=== PATIENT | female | born 1955 | race Caucasian/White ===

== ENCOUNTER 2023-09-16 08:25 | Outpatient (OUT) | payer MEDICARE, BC, SELFPAY ==
--- NOTE | 2023-09-16 | MM_ITS ---
Patient Name: JOHNNA LUCAS MR#: [id number] : 1955 Exam Date: 09/16/2023 Ordering Doctor: DR Blaise Porter . RADIOLOGY REPORT PROCEDURE: MM TOMOSYNTHESIS SCREENING BI COMPARISON: [facility] MAMM SCREEN 3D PABLITO CAD, 09/13/2022. MG MAMM SCREEN PABLITO W CAD, 09/07/2021. MG MAMM SCREEN 3D PABLITO CAD, 09/04/2020. MG MAMM PABLITO SCRN W CAD DIG, 07/03/2013. INDICATIONS: Screening Calculator Name NCI Breast Cancer Risk Assessment Tool 5 Year Breast Cancer Risk 3.10% Lifetime Breast Cancer Risk 10.50% Personal Breast Cancer No Personal Ovarian Cancer No Treatments None Family Cancers Mother with breast cancer at age 72. LOCATION: [facility] BREAST COMPOSITION: The breasts are heterogeneously dense,which may obscure small masses. FINDINGS: DIAGNOSTIC CATEGORY 2--BENIGN FINDING: RIGHT BREAST: No significant suspicious finding. Scattered benign-appearing calcifications are present. No significant change has occurred. LEFT BREAST: No significant suspicious finding. Scattered benign-appearing lymph nodes are present. No significant change has occurred. RECOMMENDATIONS: ROUTINE MAMMOGRAM AND CLINICAL EVALUATION IN 12 MONTHS. PLEASE NOTE: A NORMAL MAMMOGRAM DOES NOT EXCLUDE THE POSSIBILITY OF BREAST CANCER. A CLINICALLY SUSPICIOUS PALPABLE LUMP SHOULD BE BIOPSIED. Dictated by: Lv David M.D. on 09/20/2023 at 11:28 Approved by: vL David M.D. on 09/20/2023 at 11:30
== END 2023-09-16 08:26 | disposition home or self-care (01) ==
LOC: MAMMO 08:25
PROVIDERS: PCP Family Medicine; Visit Provider Family Medicine
DX: Z12.31 Encounter for screening mammogram for malignant neoplasm of breast (principal); Z80.3 Family history of malignant neoplasm of breast
CPT/HCPCS: 77063; 77067

== ENCOUNTER 2023-09-22 10:08 | Outpatient (OUT) | payer MEDICARE, BC, SELFPAY ==
--- OUTSIDE RECORDS SUMMARY | 2023-09-22 10:16 | XMS_ITS | CCD ---
Author Organization [facility] Care Team Providers Care Stage Setting Painter Apprentice Name Role Phone FRANCIS CALVILLO Admitting Unavailable KARI, DR LOCKWOOD Primary Care Unavailable FRANCIS CALVILLO Attending Unavailable FRANCIS CALVILLO Consulting Unavailable DR MANDIE PIERCE Primary Care Unavailable KARI, DR LOCKWOOD Admitting Unavailable KARI, DR LOCKWOOD Attending Unavailable KARI, DR LOCKWOOD Consulting Unavailable KARI, DR LOCKWOOD Admitting Unavailable KARI, DR LOCKWOOD Attending Unavailable NEY, DR LUTHER Soares Consulting Unavailable KARI, DR LOCKWOOD Primary Care Unavailable Allergies Allergy Classification Reported Allergen(s) Allergy Type Date of Onset Reaction(s) Facility (1 source) Codeine Drug Allergy 01-27-2015 [facility] Repository (1 source) Sulfonamides (Antibiotic) Drug allergy (disorder) 01-27-2015 [facility] Rep[facility] Problems Problem Classification Problem Date Documented Da te Episodic/Chronic Deficiency and other anemia (1 source) Anemia, unspecified; Translations: [ANEMIA UNSPECIFIED] Onset: 09-16-2021 Episodic Diabetes mellitus without complication (1 source) Other abnormal glucose; Translations: [OTHER ABNORMAL GLUCOSE] Onset: 09-16-2021 Episodic Disorders of lipid metabolism (4 sources) Hyperlipidemia, unspecified; Translations: [HYPERLIPIDEMIA UNSPECIFIED] Onset: 09-10-2021 Chronic Esophageal disorders (1 source) Gastro-esophageal reflux disease without esophagitis; Translations: [GERD WITHOUT ESOPHAGITIS] Onset: 09-16-2021 Chronic Malaise and fatigue (1 source) Other fatigue; Translations: [OTHER FATIGUE] Onset: 09-16-2021 Episodic Other screening for suspected conditions (not mental disorders or infectious disease) (4 sources) Encounter for screening mammogram for malignant neoplasm of breast; Translations: [ENC SCR MAMMO MALIG NEOPLASM BREAST] Onset: 09-07-2021 Episodic Residual codes; unclassified (1 source) Family history of malignant neoplasm of breast; Translations: [FAMILY HX MALIG NEOPLASM OF BREAST] Onset: 09-11-2021 Episodic Results Test Name Value Interpretation Reference Range Facility CBC AUTO DIFFon 09-10-2021 BASO # 0.0 103/ul Normal 0.0-0.1 [facility] Comment on above: Performed By: #### C BC #### [facility] [address] [address] [address] Scott Mukherjee Basophils/100 WBC (Bld) 0.7 % Normal 0.2-2.0 [facility] Comment on above: Performed By: #### C BC #### [facility] [address] [address] [address] Scott Mukherjee EO # 0.0 103/ul Normal 0.0-0.7 [facility] Comment on above: Performed By: #### C BC #### [facility] [address] [place] [address] Dr. Scott Mukherjee Eosinophils/100 WBC (Bld) 0.7 % Critically low 0.9-7.0 [facility] Comment on above: Performed By: #### C BC #### [facility] [address] [place] [address] Dr. Scott Mukherjee Erythrocyte distribution width (RBC) [Ratio] 14.5 % Normal 11.0-15.0 [facility] Comment on above: Performed By: #### C BC #### [facility] [address] [place] [address] Dr. Scott Mukherjee Hematocrit (Bld) [Volume fraction] 40.9 % Normal 36.0-48.0 [facility] Comment on above: Performed By: #### C BC #### [facility] [address] [place] [address] Dr. Scott Mukherjee Hemoglobin (Bld) [Mass/Vol] 12.4 g/dL Normal 12.0-16.0 [facility] Comment on above: Performed By: #### C BC #### [facility] [address] [place] [address] Dr. Scott Mukherjee IG # 0.03 10e3/ul Normal 0.00-0.03 [facility] Comment on above: Performed By: #### C BC #### [facility] [address] [place] [address] Dr. Scott Mukherjee IG % 0.5 % Normal 0.0-0.5 [facility] Comment on above: Performed By: #### C BC #### [facility] [address] [place] [address] Dr. Scott Mukherjee LYMPH # 1.3 103/ul Normal 1.2-3.8 [facility] Comment on above: Performed By: #### C BC #### [facility] [address] [place] [address] Dr. Scott Mukherjee Lymphocytes/100 WBC (Bld) 21.0 % Normal 20.5-60.0 [facility] Comment on above: Performed By: #### C BC #### [facility] [address] [place] [address] Dr. Scott Mukherjee MANUAL DIFF REQ NO Normal [facility] Comment on above: Performed By: #### C BC #### [facility] [address] [place] [address] Dr. Scott Mukherjee MCH (RBC) [Entitic mass] 26.7 pg Normal 26.7-34.0 [facility] Comment on above: Performed By: #### C BC #### [facility] [address] [place] [address] Dr. Scott Mukherjee MCHC (RBC) [Mass/Vol] 30.3 g/dL Normal 29.9-35.2 [facility] Comment on above: Performed By: #### C BC #### [facility] [address] [place] [address] Dr. Scott Mukherjee MCV (RBC) [Entitic vol] 88.1 fL Normal 81.0-99.0 [facility] Comment on above: Performed By: #### C BC #### [facility] [address] [place] [address] Dr. Scott Mukherjee MONO # 0.4 103/ul Normal 0.3-0.8 [facility] Comment on above: Performed By: #### C BC #### [facility] [address] [place] [address] Dr. Scott Mukherjee Monocytes/100 WBC (Bld) 6.4 % Normal 1.7-12.0 [facility] Comment on above: Performed By: #### C BC #### [facility] [address] [place] [address] Dr. Scott Mukherjee NEUT # 4.3 103/ul Normal 1.4-6.5 [facility] Comment on above: Performed By: #### C BC #### [facility] [address] [place] [address] Dr. Scott Mukherjee Neutrophils/100 WBC (Bld) 70.7 % Normal 43.0-75.0 [facility] Comment on above: Performed By: #### C BC #### [facility] [address] [place] [address] Dr. Scott Mukherjee Platelet mean volume (Bld) [Entitic vol] 9.7 fL Normal 9.5-13.5 [facility] Comment on above: Performed By: #### C BC #### [facility] [address] [place] [address] Dr. Scott Mukherjee PLT 387 103/ul Normal 150-450 [facility] Comment on above: Performed By: #### C BC #### [facility] [address] [place] [address] Dr. Scott Mukherjee RBC 4.64 106/ul Normal 4.20-5.40 [facility] Comment on above: Performed By: #### C BC #### [facility] [address] [place] [address] Dr. Scott Mukherjee WBC 6.1 103/ul Normal 4.0-11.0 [facility] Comment on above: Performed By: #### C BC #### [facility] [address] [place] [address] Dr. Scott Mukherjee FREE THYROXINE INDEX T7on FTI 3.49 Normal 1.30-4.50 [facility] Comment on above: Performed By: #### T 7, LIPID, TSH, CMP #### [facility] [address] [place] [address] Dr. Scott Mukherjee T3U 32.0 % Normal 30.0-39.0 [facility] Comment on above: Performed By: #### T 7, LIPID, TSH, CMP #### [facility] [address] [address] [address] Scott Mukherjee T4 [Mass/Vol] 10.90 ug/dL Normal 4.80-13.90 [facility] Comment on above: Performed By: #### T 7, LIPID, TSH, CMP #### [facility] [address] [address] [address] Scott Mukherjee GLYCOHEMOGLOBIN A1Con 2021 ADA RECOMMENDATION SEE BELOW Normal [facility] Comment on above: Result Comment: ADA RECOMMENDED LIMIT 4.0 - 6.0 ADA THERAPEUTIC TARGET < 7.0 ACTION SUGGESTED > 7.0 Performed By: #### A 1C #### [facility] [address] [place] [address] Dr. Scott Mukherjee Glucose [Mass/Vol] 91 mg/dL Normal [facility] Comment on above: Performed By: #### A 1C #### [facility] [address] [address] [address] Scott Mukherjee HbA1c (Bld) [Mass fraction] 4.8 % Normal 4.5-6.2 [facility] Comment on above: Performed By: #### A 1C #### [facility] [address] [place] [address] Dr. Scott Mukherjee IRONon 09-10-2021 Iron [Mass/Vol] 52.0 ug/dL Normal 50.0-170.0 [facility] Comment on above: Performed By: #### I CLAYTON #### [facility] [address] [address] [address] Scott Mukherjee LIPID PROFILEon 09-10-2021 CHOL-HDL RATIO NORM SEE BELOW Normal [facility] Comment on above: Result Comment: 3.3 - 4.4 LOW RISK 4.4 - 7.1 AVERAGE RISK 7.1 - 11.0 MODERATE RISK >11.0 HIGH RISK Performed By: #### T 7, LIPID, TSH, CMP #### [facility] [address] [address] [address] Scott Mukherjee Cholesterol [Mass/Vol] 220 mg/dL Critically high <=200 [facility] Comment on above: Performed By: #### T 7, LIPID, TSH, CMP #### [facility] [address] [address] [address] Scott Mukherjee Cholesterol in HDL [Mass/Vol] 61 mg/dL Critically high 40-60 [facility] Comment on above: Performed By: #### T 7, LIPID, TSH, CMP #### [facility] [address] [address] [address] Scott Mukherjee Cholesterol in LDL [Mass/Vol] 137.2 mg/dL Normal [facility] Comment on above: Performed By: #### T 7, LIPID, TSH, CMP #### [facility] [address] [address] [address] Scott Mukherjee Cholesterol.total/Cho lesterol in HDL [Mass ratio] 3.6 {ratio} Normal [facility] Comment on above: Performed By: #### T 7, LIPID, TSH, CMP #### [facility] [address] [address] [address] Scott Mukherjee HDL NORMAL > or = 60 mg/dl - LO W CARDIOVASCULAR RISK <40 mg/dl - HIGH CARDIOVASCULAR RISK Normal [facility] Comment on above: Performed By: #### T 7, LIPID, TSH, CMP #### [facility] [address] [address] [address] Scott Mukherjee LDL CALC NORMAL SEE BELOW Normal [facility] Comment on above: Result Comment: <100 mg/dl OPTIMAL 100 - 129 mg/dl NEAR OR ABOVE OPTIMAL 130 - 159 mg/dl BORDERLINE HIGH 160 - 189 mg/dl HIGH >190 mg/dl VERY HIGH Performed By: #### T 7, LIPID, TSH, CMP #### [facility] [address] [address] [address] Scott Mukherjee Triglyceride [Mass/Vol] 109 mg/dL Normal <=150 [facility] Comment on above: Performed By: #### T 7, LIPID, TSH, CMP #### [facility] [address] [address] [address] Scott Mukherjee VLDL CALC 21.8 mg/dL Normal [facility] Comment on above: Performed By: #### T 7, LIPID, TSH, CMP #### [facility] [address] [address] [address] Scott Mukherjee PROF 14(COMP METB)on 022 Albumin [Mass/Vol] 2.6 g/dL Critically low 3.4-5.0 [facility] Comment on above: Performed By: #### T 7, LIPID, TSH, CMP #### [facility] [address] [address] [address] Scott Mukherjee Albumin/Globulin [Mass ratio] 0.7 {ratio} Normal [facility] Comment on above: Performed By: #### T 7, LIPID, TSH, CMP #### [facility] [address] [place] [address] Dr. Scott Mukherjee ALP [Catalytic activity/Vol] 109 U/L Normal 46-116 [facility] Comment on above: Performed By: #### T 7, LIPID, TSH, CMP #### [facility] [address] [address] [address] Scott Mukherjee ALT [Catalytic activity/Vol] 25 U/L Normal 14-59 [facility] Comment on above: Performed By: #### T 7, LIPID, TSH, CMP #### [facility] [address] [address] [address] Scott Mukherjee Anion gap [Moles/Vol] 11.7 mmol/L Normal [facility] Comment on above: Performed By: #### T 7, LIPID, TSH, CMP #### [facility] [address] [address] [address] Scott Mukherjee AST [Catalytic activity/Vol] 18 U/L Normal 15-37 [facility] Comment on above: Performed By: #### T 7, LIPID, TSH, CMP #### [facility] [address] [place] [address] Dr. Scott Mukherjee Bilirubin [Mass/Vol] 0.2 mg/dL Normal 0.2-1.0 [facility] Comment on above: Performed By: #### T 7, LIPID, TSH, CMP #### [facility] [address] [address] [address] Scott Mukherjee Calcium [Mass/Vol] 9.0 mg/dL Normal 8.5-10.1 [facility] Comment on above: Performed By: #### T 7, LIPID, TSH, CMP #### [facility] [address] [place] [address] Dr. Scott Mukherjee Chloride [Moles/Vol] 103 mmol/L Normal 98-107 [facility] Comment on above: Performed By: #### T 7, LIPID, TSH, CMP #### [facility] [address] [place] [address] Dr. Scott Mukherjee CO2 [Moles/Vol] 27.8 mmol/L Normal 21.0-32.0 [facility] Comment on above: Performed By: #### T 7, LIPID, TSH, CMP #### [facility] [address] [place] [address] Dr. Scott Mukherjee Creatinine [Mass/Vol] 0.68 mg/dL Normal 0.55-1.02 [facility] Comment on above: Performed By: #### T 7, LIPID, TSH, CMP #### [facility] [address] [place] [address] Dr. Scott Mukherjee EGFR-AF CYMRAES >60 Normal >=60 [facility] Comment on above: Performed By: #### T 7, LIPID, TSH, CMP #### [facility] [address] [place] [address] Dr. Scott Mukherjee EGFR-NON AF CYMRAES >60 Normal >=60 [facility] Comment on above: Performed By: #### T 7, LIPID, TSH, CMP #### [facility] [address] [place] [address] Dr. Scott Mukherjee Globulin (S) [Mass/Vol] 3.9 g/dL Normal [facility] Comment on above: Performed By: #### T 7, LIPID, TSH, CMP #### [facility] [address] [place] [address] Dr. Scott Mukherjee Glucose [Mass/Vol] 98 mg/dL Normal 74-106 [facility] Comment on above: Performed By: #### T 7, LIPID, TSH, CMP #### [facility] [address] [address] [address] Scott Mukherjee Potassium [Moles/Vol] 4.5 mmol/L Normal 3.5-5.1 [facility] Comment on above: Performed By: #### T 7, LIPID, TSH, CMP #### [facility] [address] [place] [address] Dr. Scott Mukherjee Protein [Mass/Vol] 6.5 g/dL Normal 6.4-8.2 [facility] Comment on above: Performed By: #### T 7, LIPID, TSH, CMP #### [facility] [address] [place] [address] Dr. Scott Mukherjee Sodium [Moles/Vol] 138 mmol/L Normal 136-145 [facility] Comment on above: Performed By: #### T 7, LIPID, TSH, CMP #### [facility] [address] [place] [address] Dr. Scott Mukherjee Urea nitrogen [Mass/Vol] 11.0 mg/dL Normal 7.0-18.0 [facility] Comment on above: Performed By: #### T 7, LIPID, TSH, CMP #### [facility] [address] [place] [address] Dr. Scott Mukherjee Urea nitrogen/Creatinine [Mass ratio] 16.2 mg/mg Normal [facility] Comment on above: Performed By: #### T 7, LIPID, TSH, CMP #### [facility] [address] [place] [address] Dr. Scott Mukherjee TSHon 09-10-2021 TSH 1.858 uIU/mL Normal 0.358-3.740 [facility] Comment on above: Performed By: #### T 7, LIPID, TSH, CMP #### [facility] [address] [place] [address] Dr. Scott Mukherjee TSH RANGE SEE BELOW Normal [facility] Comment on above: Result Comment: <0.3 4 UIU/ml HYPERTHYROID 0.34-5.60 UIU/ml EUTHYROID >5.60 UIU/ml HYPOTHYROID Performed By: #### T 7, LIPID, TSH, CMP #### [facility] [address] [address] [address] Scott Mukherjee MG MAMM SCREEN PABLITO W CADon 0 09-07-2021 MG MAMM SCREEN PABLITO W CAD Patient: JOHNNA LUCAS Exam Date: 09/07/2021 : 1955 Gender:F Ordering : DR MANDIE PIERCE . Admission #: [id number] Family : Order #: [id number] CLICK HERE TO VIEW EXAM RADIOLOGY REPORT PROCEDURE: MAMMOGRAM BILATERAL SCREENING DIGITAL WITH COMPUTER AIDED DETECTION COMPARISON: MG MAMM SCREEN 3D PABLITO CAD, 09/04/2020. MG MAMM SCREEN PABLITO W CAD, 09/04/2019. INDICATIONS: Screening mammography Calculator Name NCI Breast Cancer Risk Assessment Tool 5 Year Breast Cancer Risk 3.10% Lifetime Breast Cancer Risk 11.40% Personal Breast Cancer No Personal Ovarian Cancer No Treatments None Family Cancers Mother with breast cancer at age 72. LOCATION: [facility] BREAST COMPOSITION: Heterogeneously dense,which may obscure small masses. FINDINGS: DIAGNOSTIC CATEGORY 2--BENIGN FINDING. NO CHANGE FROM COMPARISON. The patient has a fused cervical spine, tomographic images could not be performed. Scattered benign-appearing nodules are present. Scattered benign-appearing calcifications are present. Scattered benign-appearing lymph nodes are present. RIGHT BREAST: No significant suspicious finding. LEFT BREAST: No significant suspicious finding. RECOMMENDATIONS: ROUTINE MAMMOGRAM AND CLINICAL EVALUATION IN 12 MONTHS. PLEASE NOTE: A NORMAL MAMMOGRAM DOES NOT EXCLUDE THE POSSIBILITY OF BREAST CANCER. A CLINICALLY SUSPICIOUS PALPABLE LUMP SHOULD BE BIOPSIED. Dictated by: Luther Ge MD on 09/07/2021 at 10:55 Approved by: Luther Ge MD on 09/07/2021 at 10:56 Normal [facility] Pap IG, rfx Aptima HPV, rfx /18,45on 01-22-2021 . . Normal [facility] Comment on above: Result Comment: Perf ormed at: WB Performed By: #### P APHR2A #### [facility] [address] [address] [address] Scott Mukherjee DIAGNOSIS: Comment Normal [facility] Comment on above: Result Comment: NEGA TIVE FOR INTRAEPITHELIAL LESION OR MALIGNANCY. CELLULAR CHANGES ASSOCIATED WITH ATROPHY ARE PRESENT. Performed at: WB Performed By: #### P APHR2A #### [facility] [address] [place] [address] Dr. Scott Mukherjee HPV Aptima Negative Normal Negative [facility] Comment on above: Result Comment: This nucleic acid amplification test detects fourteen high-risk HPV types (16,18,31,33,35,39,45,51,52,56,58,59,66,68) without differentiation. Performed at: =G Performed By: #### P APHR2A #### [facility] [address] [place] [address] Dr. Scott Mukherjee Methodology: Comment Normal [facility] Comment on above: Result Comment: This liquid based ThinPrep(R) pap test was screened with the use of an image guided system. Performed at: WB Performed By: #### P APHR2A #### [facility] [address] [place] [address] Dr. Scott Mukherjee Note: Comment Normal [facility] Comment on above: Result Comment: The Pap smear is a screening test designed to aid in the detection of premalignant and malignant conditions of the uterine cervix. It is not a diagnostic procedure and should not be used as the sole means of detecting cervical cancer. Both false-positive and false-negative reports do occur. . Performed at: WB Performed By: #### P APHR2A #### [facility] [address] [place] [address] Dr. Scott Mukherjee Performed by: Comment Normal [facility] Comment on above: Result Comment: Gale García, Cloth Washer Back Tender (ASCP) Performed at: WB Performed By: #### P APHR2A #### [facility] [address] [place] [address] Dr. Scott Mukherjee Specimen adequacy: Comment Normal [facility] Comment on above: Result Comment: Sati sfactory for evaluation. Endocervical component may not be distinguished in cases of atrophy. Performed at: WB Performed By: #### P APHR2A #### [facility] [address] [place], [place] [address] Dr. Scott Mukherjee Encounters Encounter Date Encounter Type Care Provider Facility Start: 09-10-2021 End: 09-11-[address] MANDIE PIERCE Facility:[facility] Start: 09-07-2021 End: 09-08-[address] MANDIE PIERCE Facility:[facility] Start: 01-28-2021 Encounter for gyneco logical examination (general) (routine) without abnormal findings FRANCIS CALVILLO [facility] Start: 01-19-2021 End: 01-19-2021 ambulatory FRANCIS KARLI Facility:[facility] Start: 01-19-2021 End: 01-19-2021 Encounter for gynecological examination (general) (routine) without abnormal findings FRANCIS KARLI Facility:[facility] Payers Date Payer Category Payer Medicare [id number] 1958 Unknown [id number] 1958 Unknown [id number] 1955 Unknown [id number] [id number] [id number] 1955 Unknown [id number] 1955 Unknown [id number] [id number] Summary Purpose Family History No Family History Records Found Advance Directives No Advanced Directives Records Found Additional Source Comments INFORMATION SOURCE (unrecogn ized section and content) DATE CREATED AUTHOR 09/17/2021 [facility] FOR RECORDS PERTAINING TO PATIENTS WHO ARE OR HAVE BEEN ENROLLED IN A CHEMICAL DEPENDENCY/SUBSTANCEABUSE PROGRAM, SOME INFORMATION MAY BE OMITTED. This clinical summary was aggregated from multiple sources. Caution should be exercised in using it in the provision of clinical care. This summary normalizes information from multiple sources, and as a consequence, information in this document may materially change the coding, format and clinical context of patient data. In addition, data may be omitted in some cases. CLINICAL DECISIONS SHOULD BE BASED ON THE PRIMARY CLINICAL RECORDS. [facility] [employer] [facility]. provides no warranty or guarantee of the accuracy or completeness of information in this document.
[2023-09-22 10:54] LABS: Estimated Average Glucose 103 mg/dL; Glycohemoglobin A1C 5.2 % (4.5-6.2)
[2023-09-22 12:03] LABS: Basophils Absolute Auto 0.1 10^3/uL (0.0-0.1); Basophils Percent Auto 1.1 % (0.2-2.0); Eosinophils Absolute Auto 0.1 10^3/uL (0.0-0.7); Eosinophils Percent Auto 0.9 % (0.9-7.0); Hematocrit 42.1 % (36.0-48.0); Hemoglobin 12.7 g/dL (12.0-16.0); Immature Granulocytes Abs Auto 0.03 10^3/uL (0.00-0.03); Immature Granulocytes Pct Auto 0.5 % (0.0-0.5); Lymphocytes Absolute Auto 1.2 10^3/uL (1.2-3.8); Lymphocytes Percent Auto 21.9 % (20.5-60.0); Mean Corpuscular HGB Conc 30.2 g/dL (29.9-35.2); Mean Corpuscular Hemoglobin 26.1 pg (26.7-34.0); Mean Corpuscular Volume 86.4 fL (81.0-99.0); Mean Platelet Volume 10.3 fL (9.5-13.5); Monocytes Absolute Auto 0.4 10^3/uL (0.3-0.8); Monocytes Percent Auto 6.8 % (1.7-12.0); Neutrophils Absolute Auto 3.8 10^3/uL (1.4-6.5); Neutrophils Percent Auto 68.8 % (43.0-75.0); Platelet Count 362 10^3/uL (150-450); Red Blood Count 4.87 10^6/uL (4.20-5.40); Red Cell Distribution Width 15.4 % (11.0-15.0); White Blood Count 5.6 10^3/uL (4.0-11.0)
[2023-09-22 12:30] LABS: Alanine Aminotransferase 24 U/L (14-59); Albumin Globulin Ratio 0.7; Albumin Level 3.1 g/dL (3.4-5.0); Alkaline Phosphatase 131 U/L (46-116); Anion Gap 11.9; Aspartate Amino Transferase 20 U/L (15-37); BUN Creatinine Ratio 12.5; Bilirubin Total 0.3 mg/dL (0.2-1.0); Calcium 9.1 mg/dL (8.5-10.1); Carbon Dioxide 28.9 mmol/L (21.0-32.0); Chloride 101 mmol/L (98-107); Chol HDL Ratio 2.9; Cholesterol 209 mg/dL (<=200); Estimated GFR (African America >60 (>=60); Estimated GFR (Non-African Ame >60 (>=60); Free T3 2.11 pg/mL (2.18-3.98); Globulin 4.2 g/dL; Glucose 101 mg/dL (74-106); HDL Cholesterol 71 mg/dL (40-60); Potassium 4.8 mmol/L (3.5-5.1); Sodium 137 mmol/L (136-145); Thyroid Stimulating Hormone 1.725 uIU/mL (0.358-3.740); Total Protein 7.3 g/dL (6.4-8.2); Triglycerides 76 mg/dL (<=150); VLDL CHOLESTEROL 15.2 mg/dL
[2023-09-23 11:11] LABS: Insulin 8.7 uIU/mL (2.6-24.9)
== END 2023-09-22 10:09 | disposition home or self-care (01) ==
LOC: LAB 10:10
PROVIDERS: PCP Family Medicine; Visit Provider Family Medicine
DX: D50.9 Iron deficiency anemia, unspecified (principal); K21.9 Gastro-esophageal reflux disease without esophagitis; E78.00 Pure hypercholesterolemia, unspecified; R73.09 Other abnormal glucose; D64.9 Anemia, unspecified; E55.9 Vitamin D deficiency, unspecified
CPT/HCPCS: 36415; 80053; 80061; 82306; 83036; 83525; 83540; 84436; 84443; 84481; 85025

== ENCOUNTER 2024-09-25 10:58 | Outpatient (OUT) | payer MEDICARE, BC, SELFPAY ==
--- OUTSIDE RECORDS SUMMARY | 2024-09-25 11:00 | XMS_ITS | Clinical Summary ---
Author Organization [facility] Address [address] [place] [address] Care Team Providers Care Guest History Clerk Name Role Phone Unavailable Primary Care Provider Unavailabl e Social History Tobacco Use Types Packs/Day Years Used Date Smoking Tobacco: Never Assessed Comments Unknown Sex and Gender Information Value Date Recorded Sex Assigned at Not on file Legal Sex Female 6:39 PM EDT Gender Identity Not on file Sexual Orientation Not on file Plan of Treatment Upcoming Encounters Date Type Department Care Team (Late st Contact Info) Description 11/05/2024 1:00 PM EDT Office Visit [facility] [address] [place] [address] Gale Larkin PA [address] [place] [address] Health Maintenance Due Date Last Done Comments CT Colonography 1956 Colonoscopy 1956 Colorectal Cancer Screening 1956 FIT-DNA 1956 FIT 1956 FOBT 1956 Sigmoidoscopy 1956 Mammogram 1996 Pneumococcal Vaccine: 65+ Ye ars (3 of 3 - PCV20 or PCV21) 04/09/2026 04/09/2021, 11/24/2018 Influenza Vaccine Completed 02/26/2024, , 01/26/2022, Additional history exists Insurance MEDICARE BS
--- OUTSIDE RECORDS SUMMARY | 2024-09-25 11:00 | XMS_ITS | Encounter Summary ---
Author Organization [facility] Address [address] [place] [id number] Care Team Providers Care Director Of Strategic Marketing Name Role Phone Blaise Porter MD Primary Care Provider [phone] Source Comments In the event this information is protected by the Federal Confidentiality of Alcohol and Drug AbusePatient Records regulations: The Federal rules restrict any use of the information to criminally investigate or prosecute any alcohol or drug abuse patient.[facility] Encounter Details Date Type Department Care Team (Late st Contact Info) Description 2021 [place] [address] Provider, [facility] Medicare Coverage of Physical Exams Social History Tobacco Use Types Packs/Day Years Used Date Smoking Tobacco: Never Smokeless Tobacco: Never Alcohol Use Standard Drinks/Week Comments No 0 (1 standard drink = 0.6 oz pur e alcohol) Comments No Sex and Gender Information Value Date Recorded Sex Assigned at Not on file Legal Sex Female 3:37 PM EDT Gender Identity Not on file Sexual Orientation Not on file documented as of this encounter Plan of Treatment Not on file documented as of this encounter Visit Diagnoses Not on filedocumented in this encounter Care Teams Director Of Strategic Marketing Relationship Specialty Start Date End Date Blaise Porter MD PCP - General Family Medicine 01/29/15 documented as of this encounter
--- OUTSIDE RECORDS SUMMARY | 2024-09-25 11:00 | XMS_ITS | Clinical Summary ---
Author Organization [facility] Address [address] [place] [address] Care Team Providers Care Teachers' Aide Name Role Phone Blaise Porter MD Primary Care Provider [phone] Allergies Active Allergy Reactions Criticality Noted Date Comments Codeine Mental Status Change 02/03/2015 Sulfa (Sulfonamide Antibiotics) Hives 01/23 Medications baclofen (LIORESAL) 20 mg tablet Take 20 mg by mouth once daily. 12/27/2014 Active Omeprazole 40 mg capsule Take 40 mg by mouth once daily. 02/01/2015 Active CALCIUM CARBONATE (CALCIUM 500 ORAL) Take by mouth. Active Multivitamin capsule Take 1 capsule by mouth once daily. Active acetaminophen (TYLENOL ARTHRITIS) 650 mg CR tablet Take 650 mg by mouth every 8 hours as needed. Active diphenhydrAMINE- Acetaminophen (TYLENOL PM EXTRA STRENGTH) 25-500 mg tab Take 1 tablet by mouth as needed. Active [place]-3 Fatty Acids-Vitamin E (FISH OIL) 1,000 mg cap Take 1 capsule by mouth once daily. Active Mesalamine (PENTASA) 500 mg CR capsuleIndicatio ns:Microcytic hypochromic anemia,Iron deficiency anemia due to chronic blood loss Take 500 mg by mouth four times daily. Active Ferrous Fumarate 325 mg (106 mg iron) tabIndications:M icrocytic hypochromic anemia,Iron deficiency anemia due to chronic blood loss Take 1 tablet by mouth once daily. Active Active Problems Problem Noted Date Diagnosed Date Microcytic hypochromic anemia 02/07/2015 Social History Tobacco Use Types Packs/Day Years Used Date Smoking Tobacco: Never Smokeless Tobacco: Never Alcohol Use Standard Drinks/Week Comments No 0 (1 standard drink = 0.6 oz pur e alcohol) Comments No Sex and Gender Information Value Date Recorded Sex Assigned at Not on file Legal Sex Female 3:37 PM EDT Gender Identity Not on file Sexual Orientation Not on file Last Filed Vital Signs Vital Sign Reading Time Taken Comments Blood Pressure 107/71 03/25/2015 2:09 PM EST Pulse 77 03/25/2015 2:09 PM EST Temperature 36.7 C (98 F) 03/11/2015 12:48 PM EST Respiratory Rate 16 03/25/2015 2:09 PM EST Oxygen Saturation 97% 03/11/2015 12:48 PM EST Inhaled Oxygen Concentration - - Weight 62.1 kg (137 lb) 03/25/2015 2:09 PM EST Height 160 cm (5' 2.99 ) 03/25/2015 2:09 PM EST Body Mass Index 24.28 03/25/2015 2:09 PM EST Plan of Treatment Health Maintenance Due Date Last Done Comments Anxiety Screening 1974 Depression Screening 1974 Hepatitis C Screening 1974 DTaP,Tdap,Td Vaccine (1 - Tdap) [address] Colonography 2001 Cologuard (FIT-DNA) 2001 Colonoscopy 2001 Colorectal Cancer Screening 2001 Diabetes Screening 2001 Fecal Occult Blood 2001 Lipid Screening 2001 Sigmoidoscopy 2001 Pneumococcal Vaccine: 50+ (1 of 1 - PCV) 2006 Shingrix Vaccine (1 of 2) 2006 Bone Density Screening 2021 Covid-19 Vaccine (1 - 2023- season) 2023 Advance Directive Discussion 04/25/2024 Influenza Vaccine (Season Ended) 2024 RSV Vaccine (1 - 1-dose 75+ series) 2031 Insurance BLUE CARD PPO OOS Care Teams Teachers' Aide Relationship Specialty Start Date End Date Blaise Porter MD PCP - General Family Medicine 01/29/15
--- OUTSIDE RECORDS SUMMARY | 2024-09-25 11:11 | XMS_ITS | CCD ---
Author Organization [facility] Care Team Providers Care Cook Syrup Maker Name Role Phone FRANCIS CALVILLO Admitting Unavailable KARI, DR LOCKWOOD Primary Care Unavailable FRANCIS CALVILLO Attending Unavailable FRANCIS CALVILLO Consulting Unavailable DR MANDIE PIERCE Primary Care Unavailable KARI, DR LOCKWOOD Admitting Unavailable KARI, DR LOCKWOOD Attending Unavailable KARI, DR LOCKWOOD Consulting Unavailable KARI, DR LOCKWOOD Admitting Unavailable KARI, DR LOCWKOOD Attending Unavailable NEY, DR LUTHER Soares Consulting Unavailable KARI, DR LOCKWOOD Primary Care Unavailable Allergies Allergy Classification Reported Allergen(s) Allergy Type Date of Onset Reaction(s) Facility (1 source) Codeine Drug Allergy 01-27-2015 [facility] Repository (1 source) Sulfonamides (Antibiotic) Drug allergy (disorder) 01-27-2015 [facility] Repository Problems Problem Classification Problem Date Documented [...] 09-10-2021 BASO # 0.0 103/ul Normal 0.0-0.1 [facility] Comment on above: Performed By: #### C BC #### [facility] [address] [address] [address] Scott Mukherjee Basophils/100 WBC (Bld) 0.7 % Normal 0.2-2.0 [facility] Comment on above: Performed By: #### C BC #### [facility] [address] [address] [address] Scott Mukherjee EO # 0.0 103/ul Normal 0.0-0.7 [facility] Comment on above: Performed By: #### C BC #### [facility] [address] [place] [address] Dr. Scott Mukehrjee Eosinophils/100 WBC (Bld) 0.7 % Critically low 0.9-7.0 [facility] Comment on above: Performed By: #### C BC #### [facility] [address] [place] [address] Dr. Scott Mukherjee Erythrocyte distribution width (RBC) [Ratio] 14.5 % Normal 11.0-15.0 [facility] Comment on above: Performed By: #### C BC #### [facility] [address] [place] [address] Dr. Scott Mukherjee Hematocrit (Bld) [Volume fraction] 40.9 % Normal 36.0-48.0 [facility] Comment on above: Performed By: #### C BC #### [facility] [address] [place] [address] Dr. Scott Mukherjee Hemoglobin (Bld) [Mass/Vol] 12.4 g/dL Normal 12.0-16.0 [facility] Comment on above: Performed By: #### C BC #### [facility] [address] [place] [address] Dr. Scott Mukherjee IG # 0.03 10e3/ul Normal 0.00-0.03 [facility] Comment on above: Performed By: #### C BC #### [facility] [address] [place] [address] Dr. Scott Mukherjee IG % 0.5 % Normal 0.0-0.5 [facility] Comment on above: Performed By: #### C BC #### [facility] [address] [place] [address] Dr. Scott Mukherjee LYMPH # 1.3 103/ul Normal 1.2-3.8 [facility] Comment on above: Performed By: #### C BC #### [facility] [address] [place] [address] Dr. Scott Mukherjee Lymphocytes/100 WBC (Bld) 21.0 % Normal 20.5-60.0 [facility] Comment on above: Performed By: #### C BC #### [facility] [address] [place] [address] Dr. Scott Mukherjee MANUAL DIFF REQ NO Normal [facility] Comment on above: Performed By: #### C BC #### [facility] [address] [place] [address] Dr. Scott Mukherjee MCH (RBC) [Entitic mass] 26.7 pg Normal 26.7-34.0 [facility] Comment on above: Performed By: #### C BC #### [facility] [address] [place] [address] Dr. Scott Mukherjee MCHC (RBC) [Mass/Vol] 30.3 g/dL Normal 29.9-35.2 [facility] Comment on above: Performed By: #### C BC #### [facility] [address] [place] [address] Dr. Scott Mukherjee MCV (RBC) [Entitic vol] 88.1 fL Normal 81.0-99.0 [facility] Comment on above: Performed By: #### C BC #### [facility] [address] [place] [address] Dr. Scott Mukherjee MONO # 0.4 103/ul Normal 0.3-0.8 [facility] Comment on above: Performed By: #### C BC #### [facility] [address] [place] [address] Dr. Scott Mukherjee Monocytes/100 WBC (Bld) 6.4 % Normal 1.7-12.0 [facility] Comment on above: Performed By: #### C BC #### [facility] [address] [place] [address] Dr. Scott Mukherjee NEUT # 4.3 103/ul Normal 1.4-6.5 [facility] Comment on above: Performed By: #### C BC #### [facility] [address] [place] [address] Dr. Scott Mukherjee Neutrophils/100 WBC (Bld) 70.7 % Normal 43.0-75.0 [facility] Comment on above: Performed By: #### C BC #### [facility] [address] [place] [address] Dr. Sctot Mukherjee Platelet mean volume (Bld) [Entitic vol] 9.7 fL Normal 9.5-13.5 [facility] Comment on above: Performed By: #### C BC #### [facility] [address] [place] [address] Dr. Scott Mukherjee PLT 387 103/ul Normal 150-450 [facility] Comment on above: Performed By: #### C BC #### [facility] [address] [place] [address] Dr. Scott Mukherjee RBC 4.64 106/ul Normal 4.20-5.40 [facility] Comment on above: Performed By: #### C BC #### [facility] [address] [place] [address] Dr. Scott Mukherjee WBC 6.1 103/ul Normal 4.0-11.0 [facility] Comment on above: Performed By: #### C BC #### [facility] [address] [place] [address] Dr. Scott Mukherjee FREE THYROXINE INDEX T7on FTI 3.49 Normal 1.30-4.50 [facility] Comment on above: Performed By: #### T 7, LIPID, TSH, CMP #### [facility] [address] [place] [address] Dr. Scott Mukherjee T3U 32.0 % Normal 30.0-39.0 [facility] Comment on above: Performed By: #### T 7, LIPID, TSH, CMP #### [facility] [address] [address] [address] Scott Mukherjee T4 [Mass/Vol] 10.90 ug/dL Normal 4.80-13.90 [facility] Comment on above: Performed By: #### T 7, LIPID, TSH, CMP #### [facility] [address] [address] [address] Scott Mukherjee GLYCOHEMOGLOBIN A1Con 2021 ADA RECOMMENDATION SEE BELOW Normal [facility] Comment on above: Result Comment: ADA RECOMMENDED LIMIT 4.0 - 6.0 ADA THERAPEUTIC TARGET < 7.0 ACTION SUGGESTED > 7.0 Performed By: #### A 1C #### [facility] [address] [place] [address] Dr. Scott Mukherjee Glucose [Mass/Vol] 91 mg/dL Normal [facility] Comment on above: Performed By: #### A 1C #### [facility] [address] [address] [address] Scott Mukherjee HbA1c (Bld) [Mass fraction] 4.8 % Normal 4.5-6.2 [facility] Comment on above: Performed By: #### A 1C #### [facility] [address] [place] [address] Dr. Scott Mukherjee IRONon 09-10-2021 Iron [Mass/Vol] 52.0 ug/dL Normal 50.0-170.0 [facility] Comment on above: Performed By: #### I CLAYTON #### [facility] [address] [address] [address] Scott Mukherjee LIPID PROFILEon 09-10-2021 CHOL-HDL RATIO NORM SEE BELOW Normal [facility] Comment on above: Result Comment: 3.3 - 4.4 LOW RISK 4.4 - 7.1 AVERAGE RISK 7.1 - 11.0 MODERATE RISK >11.0 HIGH RISK Performed By: #### T 7, LIPID, TSH, CMP #### [facility] [address] [address] [address] Scott Mukherjee Cholesterol [Mass/Vol] 220 mg/dL Critically high <=200 [facility] Comment on above: Performed By: #### T 7, LIPID, TSH, CMP #### [facility] [address] [address] [address] Scott Mukherjee Cholesterol in HDL [Mass/Vol] 61 mg/dL Critically high 40-60 [facility] Comment on above: Performed By: #### T 7, LIPID, TSH, CMP #### [facility] [address] [address] [address] Scott Mukherjee Cholesterol in LDL [Mass/Vol] 137.2 mg/dL Normal [facility] Comment on above: Performed By: #### T 7, LIPID, TSH, CMP #### [facility] [address] [address] [address] Scott Mukherjee Cholesterol.total/Cho lesterol in HDL [Mass ratio] 3.6 {ratio} Normal [facility] Comment on above: Performed By: #### T 7, LIPID, TSH, CMP #### [facility] [address] [address] [address] Scott Mukherjee HDL NORMAL > or = 60 mg/dl - LO W CARDIOVASCULAR RISK <40 mg/dl - HIGH CARDIOVASCULAR RISK Normal [facility] Comment on above: Performed By: #### T 7, LIPID, TSH, CMP #### [facility] [address] [address] [address] Scott Mukherjee LDL CALC NORMAL SEE BELOW Normal [facility] Comment on above: Result Comment: <100 mg/dl OPTIMAL 100 - 129 mg/dl NEAR OR ABOVE OPTIMAL 130 - 159 mg/dl BORDERLINE HIGH 160 - 189 mg/dl HIGH >190 mg/dl VERY HIGH Performed By: #### T 7, LIPID, TSH, CMP #### [facility] [address] [address] [address] Scott Mukherjee Triglyceride [Mass/Vol] 109 mg/dL Normal <=150 [facility] Comment on above: Performed By: #### T 7, LIPID, TSH, CMP #### [facility] [address] [address] [address] Scott Mukherjee VLDL CALC 21.8 mg/dL Normal [facility] Comment on above: Performed By: #### T 7, LIPID, TSH, CMP #### [facility] [address] [address] [address] Scott Mukherjee PROF 14(COMP METB)on 022 Albumin [Mass/Vol] 2.6 g/dL Critically low 3.4-5.0 [facility] Comment on above: Performed By: #### T 7, LIPID, TSH, CMP #### [facility] [address] [address] [address] Scott Mukherjee Albumin/Globulin [Mass ratio] 0.7 {ratio} Normal [facility] Comment on above: Performed By: #### T 7, LIPID, TSH, CMP #### [facility] [address] [place] [address] Dr. Scott Mukherjee ALP [Catalytic activity/Vol] 109 U/L Normal 46-116 [facility] Comment on above: Performed By: #### T 7, LIPID, TSH, CMP #### [facility] [address] [address] [address] Scott Mukherjee ALT [Catalytic activity/Vol] 25 U/L Normal 14-59 [facility] Comment on above: Performed By: #### T 7, LIPID, TSH, CMP #### [facility] [address] [address] [address] Scott Mukherjee Anion gap [Moles/Vol] 11.7 mmol/L Normal [facility] Comment on above: Performed By: #### T 7, LIPID, TSH, CMP #### [facility] [address] [address] [address] Scott Mukherjee AST [Catalytic activity/Vol] 18 U/L Normal 15-37 [facility] Comment on above: Performed By: #### T 7, LIPID, TSH, CMP #### [facility] [address] [place] [address] Dr. Scott Mukherjee Bilirubin [Mass/Vol] 0.2 mg/dL Normal 0.2-1.0 [facility] Comment on above: Performed By: #### T 7, LIPID, TSH, CMP #### [facility] [address] [address] [address] Scott Mukherjee Calcium [Mass/Vol] 9.0 mg/dL Normal 8.5-10.1 [facility] Comment on above: Performed By: #### T 7, LIPID, TSH, CMP #### [facility] [address] [place] [address] Dr. Scott Mukherjee Chloride [Moles/Vol] 103 mmol/L Normal 98-107 [facility] Comment on above: Performed By: #### T 7, LIPID, TSH, CMP #### [facility] [address] [place] [address] Dr. Scott Mukherjee CO2 [Moles/Vol] 27.8 mmol/L Normal 21.0-32.0 [facility] Comment on above: Performed By: #### T 7, LIPID, TSH, CMP #### [facility] [address] [place] [address] Dr. Scott Mukherjee Creatinine [Mass/Vol] 0.68 mg/dL Normal 0.55-1.02 [facility] Comment on above: Performed By: #### T 7, LIPID, TSH, CMP #### [facility] [address] [place] [address] Dr. Scott Mukherjee EGFR-AF CZECH >60 Normal >=60 [facility] Comment on above: Performed By: #### T 7, LIPID, TSH, CMP #### [facility] [address] [place] [address] Dr. Scott Mukherjee EGFR-NON AF CZECH >60 Normal >=60 [facility] Comment on above: Performed By: #### T 7, LIPID, TSH, CMP #### [facility] [address] [place] [address] Dr. Scott Mukherjee Globulin (S) [Mass/Vol] 3.9 g/dL Normal [facility] Comment on above: Performed By: #### T 7, LIPID, TSH, CMP #### [facility] [address] [place] [address] Dr. Scott Mukherjee Glucose [Mass/Vol] 98 mg/dL Normal 74-[address] [facility] Comment on above: Performed By: #### T 7, LIPID, TSH, CMP #### [facility] [address] [address] [address] Scott Mukherjee Potassium [Moles/Vol] 4.5 mmol/L Normal 3.5-5.1 [facility] Comment on above: Performed By: #### T 7, LIPID, TSH, CMP #### [facility] [address] [place] [address] Dr. Scott Mukherjee Protein [Mass/Vol] 6.5 g/dL Normal 6.4-8.[address] [facility] Comment on above: Performed By: #### T 7, LIPID, TSH, CMP #### [facility] [address] [place] [address] Dr. Soctt Mukherjee Sodium [Moles/Vol] 138 mmol/L Normal 136-[address] [facility] Comment on above: Performed By: #### T 7, LIPID, TSH, CMP #### [facility] [address] [place] [address] Dr. Scott Mukherjee Urea nitrogen [Mass/Vol] 11.0 mg/dL Normal 7.0-18.0 [facility] Comment on above: Performed By: #### T 7, LIPID, TSH, CMP #### [facility] [address] [place] [address] Dr. Scott Mukherjee Urea nitrogen/Creatinine [Mass ratio] 16.2 mg/mg Normal [facility] Comment on above: Performed By: #### T 7, LIPID, TSH, CMP #### [facility] [address] [place] [address] Dr. Scott Mukherjee TSHon 09-10-2021 TSH 1.858 uIU/mL Normal 0.358-3.740 [facility] Comment on above: Performed By: #### T 7, LIPID, TSH, CMP #### [facility] [address] [place] [address] Dr. Scott Mukherjee TSH RANGE SEE BELOW Normal [facility] Comment on above: Result Comment: <0.3 4 UIU/ml HYPERTHYROID 0.34-5.60 UIU/ml EUTHYROID >5.60 UIU/ml HYPOTHYROID Performed By: #### T 7, LIPID, TSH, CMP #### [facility] [address] [address] [address] Scott Mukherjee MG MAMM SCREEN PABLITO W CADon 0 09-07-2021 MG MAMM SCREEN PABLITO W CAD Patient: JOHNAN LUCAS Exam Date: 09/07/2021 : 1955 Gender:F Ordering : DR MANDIE PIERCE . Admission #: [id number] Family : Order #: [id number] CLICK HERE TO VIEW EXAM RADIOLOGY REPORT [...] breast cancer at age 73. LOCATION: [facility] BREAST COMPOSITION: Heterogeneously dense,which may obscure small [...] MD on 09/07/2021 at 10:56 Normal [facility] Pap IG, rfx Aptima HPV, rfx /18,45on 01-22-2021 . . Normal [facility] Comment on above: Result Comment: Perf ormed at: WB Performed By: #### P APHR2A #### [facility] [address] [address] [address] Scott Mukherjee DIAGNOSIS: Comment Normal [facility] Comment on above: Result Comment: NEGA TIVE FOR INTRAEPITHELIAL LESION OR MALIGNANCY. CELLULAR CHANGES ASSOCIATED WITH ATROPHY ARE PRESENT. Performed at: WB Performed By: #### P APHR2A #### [facility] [address] [place] [address] Dr. Scott Mukherjee HPV Aptima Negative Normal Negative [facility] Comment on above: Result Comment: This nucleic acid amplification test detects fourteen high-risk HPV types (16,18,31,33,35,39,45,51,52,56,58,59,66,68) without differentiation. Performed at: =G Performed By: #### P APHR2A #### [facility] [address] [place] [address] Dr. Scott Mukherjee Methodology: Comment Normal [facility] Comment on above: Result Comment: This liquid based ThinPrep(R) pap test was screened with the use of an image guided system. Performed at: WB Performed By: #### P APHR2A #### [facility] [address] [place] [address] Dr. Scott Mukherjee Note: Comment Normal [facility] Comment on above: Result Comment: The [...] WB Performed By: #### P APHR2A #### [facility] [address] [place] [address] Dr. Scott Mukherjee Performed by: Comment Normal [facility] Comment on above: Result Comment: Gale García, D[employer] Wheel Operator (ASCP) Performed at: WB Performed By: #### P APHR2A #### [facility] [address] [place] [address] Dr. Scott Mukherjee Specimen adequacy: Comment Normal [facility] Comment on above: Result Comment: Sati sfactory for evaluation. Endocervical component may not be distinguished in cases of atrophy. Performed at: WB Performed By: #### P APHR2A #### [facility] [address] [place], [place] [address] Dr. Scott Mukherjee Encounters Encounter Date Encounter Type Care Provider Facility Start: 09-10-2021 End: 09-11-[address] MANDIE PIERCE Facility:[facility] Start: 09-07-2021 End: 09-08-[address] MANDIE PIERCE Facility:[facility] Start: 01-28-2021 Encounter for gyneco logical examination (general) (routine) without abnormal findings FRANCIS CALVILLO [facility] Start: 01-19-2021 End: 01-19-2021 ambulatory FRANCIS KARLI Facility:[facility] Start: 01-19-2021 End: 01-19-2021 Encounter for gynecological examination (general) (routine) without abnormal findings FRANCIS KARLI Facility:[facility] Payers Date Payer Category Payer Medicare [id number] 1958 Unknown [id number] 1958 Unknown [id number] 1955 Unknown [id number] [id number] [id number] 1955 Unknown [id number] [id number] [id number] 1955 Unknown [id number] [id number] Summary Purpose Family History No Family History Records Found Advance Directives No Advanced Directives Records Found Additional Source Comments INFORMATION SOURCE (unrecogn ized section and content) DATE CREATED AUTHOR 09/17/2021 [facility] FOR RECORDS PERTAINING TO PATIENTS WHO [...] BE BASED ON THE PRIMARY CLINICAL RECORDS. [facility] [employer] [facility]. provides no warranty or guarantee of the accuracy or completeness of information in this document.
--- NOTE | 2024-09-25 11:26 | MM_ITS ---
Patient Name: JOHNNA LUCAS MR#: [id number] : 1955 Exam Date: 09/25/2024 Ordering Doctor: DR MANDIE PIERCE . RADIOLOGY REPORT PROCEDURE: MM SCREENING MAMMO BI COMPARISON: MM SCREENING BI, 09/16/2023. MG MAMM SCREEN 3D PABLITO CAD, 09/13/2022. MG MAMM SCREEN PABLITO W CAD, 09/07/2021. MG MAMM PABLITO SCRN W CAD DIG, 07/03/2013. INDICATIONS: Screening Calculator Name NCI Breast Cancer Risk Assessment Tool 5 Year Breast Cancer Risk 3.20% Lifetime Breast Cancer Risk 10.10% Personal Breast Cancer No Personal Ovarian Cancer No Treatments None Family Cancers Mother with breast cancer at age 72. LOCATION: [facility] BREAST COMPOSITION: There are scattered areas of fibroglandular density. FINDINGS: RIGHT BREAST: No significant suspicious finding. Benign-appearing lymph nodes are noted along the chest wall. Benign-appearing calcifications are redemonstrated. LEFT BREAST: No significant suspicious finding. Benign-appearing lymph nodes are noted along the chest wall. Benign-appearing calcifications are present. DIAGNOSTIC CATEGORY 2--BENIGN FINDING: RECOMMENDATIONS: ROUTINE MAMMOGRAM AND CLINICAL EVALUATION IN 12 MONTHS. PLEASE NOTE: A NORMAL MAMMOGRAM DOES NOT EXCLUDE THE POSSIBILITY OF BREAST CANCER. A CLINICALLY SUSPICIOUS PALPABLE LUMP SHOULD BE BIOPSIED. Dictated by: Aakash Velasquez MD on 09/25/2024 at 11:37 Approved by: Aakash Velasquez MD on 09/25/2024 at 11:41
== END 2024-09-25 10:59 | disposition home or self-care (01) ==
LOC: MAMMO 10:58
PROVIDERS: PCP Family Medicine; Visit Provider Family Medicine
DX: Z12.31 Encounter for screening mammogram for malignant neoplasm of breast (principal); Z80.3 Family history of malignant neoplasm of breast
CPT/HCPCS: 77067

== ENCOUNTER 2024-09-27 11:22 | Outpatient (OUT) | payer MEDICARE, BC, SELFPAY ==
--- NOTE | 2024-09-27 11:41 | XR_ITS ---
The [address] [address] Patient Name: JOHNNA LUCAS MRN: [id number] date: 1955 Sex: F Assigned Patient Location: LAB Current Patient Location: LAB Accession/Order Number: [id number] Exam Date: 09/27/2024 12:13 Report Date: 09/27/2024 12:16 At the request of: MANDIE PIERCE MD Procedure: XR cervical spine 2-3V CERVICAL SPINE - 3 views: CLINICAL HISTORY: Cervical Radiculopathy COMPARISON: None AP, lateral and attempted odontoid views were obtained. There is osteopenia. There is straightening of the normal cervical lordosis. No acute compression fractures are seen. There is minor retrolisthesis of C3 on C4 anterolisthesis of C4 on C5. The disc spaces are uniform. There appears to be multilevel ankylosis of the facets. The atlantoaxial relationship is maintained and there is mild spurring at the lateral masses. There is no prevertebral soft tissue swelling. XR/XR cervical spine 2-3V IMPRESSION: STRAIGHTENING OF THE NORMAL CERVICAL CURVATURE. OSTEOPENIA AND MULTILEVEL FACET DISEASE. Impression dictated by: Claire Webster M.D. 09/27/2024 12:16 PM Dictation Location: [place] [address] Electronically authenticated by: [id number] Y Date: 09/27/2024 12:16
[2024-09-27 11:43] LABS: Basophils Absolute Auto 0.1 10^3/uL (0.0-0.1); Basophils Percent Auto 1.1 % (0.2-2.0); Eosinophils Percent Auto 0.6 % (0.9-7.0); Hematocrit 41.5 % (36.0-48.0); Hemoglobin 13.3 g/dL (12.0-16.0); Immature Granulocytes Abs Auto 0.04 10^3/uL (0.00-0.03); Immature Granulocytes Pct Auto 0.6 % (0.0-0.5); Lymphocytes Absolute Auto 1.4 10^3/uL (1.2-3.8); Lymphocytes Percent Auto 22.4 % (20.5-60.0); Mean Corpuscular Hemoglobin 27.2 pg (26.7-34.0); Mean Corpuscular Volume 84.9 fL (81.0-99.0); Mean Platelet Volume 9.4 fL (9.5-13.5); Monocytes Absolute Auto 0.4 10^3/uL (0.3-0.8); Monocytes Percent Auto 6.1 % (1.7-12.0); Neutrophils Absolute Auto 4.3 10^3/uL (1.4-6.5); Neutrophils Percent Auto 69.2 % (43.0-75.0); Platelet Count 337 10^3/uL (150-450); Red Blood Count 4.89 10^6/uL (4.20-5.40); Red Cell Distribution Width 14.6 % (11.0-15.0); White Blood Count 6.2 10^3/uL (4.0-11.0)
[2024-09-27 12:14] LABS: Alanine Aminotransferase 31 U/L (14-59); Albumin Globulin Ratio 0.8; Alkaline Phosphatase 126 U/L (46-116); Anion Gap 14.5; Aspartate Amino Transferase 23 U/L (15-37); BUN Creatinine Ratio 20.3; Bilirubin Total 0.3 mg/dL (0.2-1.0); Calcium 9.4 mg/dL (8.5-10.1); Carbon Dioxide 27.8 mmol/L (21.0-32.0); Chloride 99 mmol/L (98-107); Chol HDL Ratio 2.9; Cholesterol 198 mg/dL (<=200); Estimated GFR (African America >60 (>=60 mL/min/1.73m^2); Estimated GFR (Non-African Ame >60 (>=60 mL/min/1.73m^2); Free T3 2.19 pg/mL (2.18-3.98); Globulin 3.9 g/dL; Glucose 99 mg/dL (74-106); HDL Cholesterol 68 mg/dL (40-60); Potassium 4.3 mmol/L (3.5-5.1); Sodium 137 mmol/L (136-145); Thyroid Stimulating Hormone 2.034 uIU/mL (0.358-3.740); Total Protein 6.9 g/dL (6.4-8.2); Triglycerides 94 mg/dL (<=150); VLDL CHOLESTEROL 18.8 mg/dL
[2024-09-27 12:24] LABS: Estimated Average Glucose 103 mg/dL; Glycohemoglobin A1C 5.2 % (4.5-6.2)
== END 2024-09-27 11:23 | disposition home or self-care (01) ==
LOC: LAB 11:25
PROVIDERS: PCP Family Medicine; Visit Provider Family Medicine
DX: M62.830 Muscle spasm of back (principal); D50.9 Iron deficiency anemia, unspecified; K21.9 Gastro-esophageal reflux disease without esophagitis; M12.9 Arthropathy, unspecified; E78.5 Hyperlipidemia, unspecified; M54.12 Radiculopathy, cervical region; R73.02 Impaired glucose tolerance (oral); D64.9 Anemia, unspecified; M43.12 Spondylolisthesis, cervical region
CPT/HCPCS: 36415; 72040; 80053; 80061; 83036; 83540; 84436; 84443; 84481; 85025

== ENCOUNTER 2024-10-02 08:34 | Outpatient (OUT) | payer MEDICARE, BC, SELFPAY ==
--- NOTE | 2024-10-02 08:37 | MR_ITS ---
The [address] [address] Patient Name: JOHNNA LUCAS MRN: [id number] date: 1955 Sex: F Assigned Patient Location: MRI Current Patient Location: MRI Accession/Order Number: [id number] Exam Date: 10/02/2024 10:22 Report Date: 10/02/2024 10:34 At the request of: MANDIE PIERCE MD Procedure: MR cervical spine wo con EXAMINATION: MRI OF THE CERVICAL SPINE WITHOUT CONTRAST CLINICAL DATA: Chronic neck pain with radiculopathy and decreased range of motion. No reported injury. COMPARISON: Plain films 09/27/2024 TECHNIQUE: Multiecho imaging was performed in the sagittal and axial plane without contrast administration. FINDINGS: Alignment is maintained on the sagittal images. No acute compressions or marrow edema are seen. There is a hemangioma at C7. There is a normal cervicomedullary junction. The cord is normal in caliber and signal intensity throughout its imaged course. At C2-C3, there is no disc disease or stenosis. At C3-4, there is mild disco-osteophytic bulging centrally with mild associated thecal sac effacement. There is no foraminal narrowing. At C4-5, there is minor disco-osteophytic bulging with minimal thecal sac effacement. There is slight asymmetric facet hypertrophy on the left where mild associated foraminal encroachment is seen. At C5-6, there is mild central disco-osteophytic bulging with mild associated thecal sac effacement. There is no neural foraminal narrowing. At C6-7, there is no disc disease or stenosis. No MRI abnormalities are identified at the cervicothoracic junction. MR/MR cervical spine wo con IMPRESSION: STRAIGHTENING OF THE NORMAL CERVICAL LORDOSIS. MINOR DISCOVERTEBRAL DEGENERATIVE CHANGE, WITHOUT SIGNIFICANT ASSOCIATED STENOSIS. Impression dictated by: Claire Webster M.D. 10/02/2024 10:34 AM Dictation Location: [place] [address] Electronically authenticated by: [id number] Y Date: 10/02/2024 10:34
--- OUTSIDE RECORDS SUMMARY | 2024-10-02 08:45 | XMS_ITS | CCD ---
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 (1 source) Sulfonamides (Antibiotic) Drug allergy (disorder) 01-27-[address] [facility] Problems Problem Classification Problem Date [...] 09-10-2021 BASO # 0.0 103/ul Normal 0.0-0.1 [facility] Comment on above: Performed By: #### C BC #### [facility] [address] [address] [address] Scott Mukherjee Basophils/100 WBC (Bld) 0.7 % Normal 0.2-2.0 [facility] Comment on above: Performed By: #### C BC #### [facility] [address] [address] [address] Scott Mukherjee EO # 0.0 103/ul Normal 0.0-0.7 [facility] Comment on above: Performed By: #### C BC #### [facility] [address] [place] [address] Dr. Scott Mukherjee Eosinophils/100 WBC (Bld) 0.7 % Critically low 0.9-7.0 [facility] Comment on above: Performed By: #### C BC #### [facility] [address] [place] [address] Dr. Scott Mukherjee Erythrocyte distribution width (RBC) [Ratio] 14.5 % Normal 11.0-15.0 [facility] Comment on above: Performed By: #### C BC #### [facility] [address] [place] [address] Dr. Scott Mukherjee Hematocrit (Bld) [Volume fraction] 40.9 % Normal 36.0-48.0 [facility] Comment on above: Performed By: #### C BC #### [facility] [address] [place] [address] Dr. Scott Mukherjee Hemoglobin (Bld) [Mass/Vol] 12.4 g/dL Normal 12.0-16.0 [facility] Comment on above: Performed By: #### C BC #### [facility] [address] [place] [address] Dr. Scott Mukherjee IG # 0.03 10e3/ul Normal 0.00-0.03 [facility] Comment on above: Performed By: #### C BC #### [facility] [address] [place] [address] Dr. Scott Mukherjee IG % 0.5 % Normal 0.0-0.5 [facility] Comment on above: Performed By: #### C BC #### [facility] [address] [place] [address] Dr. Scott Mukherjee LYMPH # 1.3 103/ul Normal 1.2-3.[address] [facility] Comment on above: Performed By: #### C BC #### [facility] [address] [place] [address] Dr. Scott Mukherjee Lymphocytes/100 WBC (Bld) 21.0 % Normal 20.5-60.[address] [facility] Comment on above: Performed By: #### C BC #### [facility] [address] [place] [address] Dr. Scott Mukherjee MANUAL DIFF REQ NO Normal [facility] Comment on above: Performed By: #### C BC #### [facility] [address] [place] [address] Dr. Scott Mukherjee MCH (RBC) [Entitic mass] 26.7 pg Normal 26.7-34.0 [facility] Comment on above: Performed By: #### C BC #### [facility] [address] [place] [address] Dr. Scott Mukherjee MCHC (RBC) [Mass/Vol] 30.3 g/dL Normal 29.9-35.[address] [facility] Comment on above: Performed By: #### C BC #### [facility] [address] [place] [address] Dr. Scott Mukherjee MCV (RBC) [Entitic vol] 88.1 fL Normal 81.0-99.[address] [facility] Comment on above: Performed By: #### C BC #### [facility] [address] [place] [address] Dr. Scott Mukherjee MONO # 0.4 103/ul Normal 0.3-0.[address] [facility] Comment on above: Performed By: #### C BC #### [facility] [address] [place] [address] Dr. Scott Mukherjee Monocytes/100 WBC (Bld) 6.4 % Normal 1.7-12.0 [facility] Comment on above: Performed By: #### C BC #### [facility] [address] [place] [address] Dr. Scott Mukherjee NEUT # 4.3 103/ul Normal 1.4-6.5 [facility] Comment on above: Performed By: #### C BC #### [facility] [address] [place] [address] Dr. Scott Mukherjee Neutrophils/100 WBC (Bld) 70.7 % Normal 43.0-75.0 [facility] Comment on above: Performed By: #### C BC #### [facility] [address] [place] [address] Dr. Scott Mukherjee Platelet mean volume (Bld) [Entitic vol] 9.7 fL Normal 9.5-13.[address] [facility] Comment on above: Performed By: #### C BC #### [facility] [address] [place] [address] Dr. Scott Mukherjee PLT 387 103/ul Normal 150-[address] [facility] Comment on above: Performed By: #### C BC #### [facility] [address] [place] [address] Dr. Scott Mukherjee RBC 4.64 106/ul Normal 4.20-5.[address] [facility] Comment on above: Performed By: #### C BC #### [facility] [address] [place] [address] Dr. Scott Mukherjee WBC 6.1 103/ul Normal 4.0-11.[address] [facility] Comment on above: Performed By: #### C BC #### [facility] [address] [place] [address] Dr. Scott Mukherjee FREE THYROXINE INDEX T7on FTI 3.49 Normal 1.30-4.50 [facility] Comment on above: Performed By: #### T 7, LIPID, TSH, CMP #### [facility] [address] [place] [address] Dr. Scott Mukherjee T3U 32.0 % Normal 30.0-39.0 [facility] Comment on above: Performed By: #### T 7, LIPID, TSH, CMP #### [facility] [address] [address] [address] Scott Mukherjee T4 [Mass/Vol] 10.90 ug/dL Normal 4.80-13.90 [facility] Comment on above: Performed By: #### T 7, LIPID, TSH, CMP #### [facility] [address] [address] [address] Scott Mukherjee GLYCOHEMOGLOBIN A1Con 2021 ADA RECOMMENDATION SEE BELOW Normal [facility] Comment on above: Result Comment: ADA RECOMMENDED LIMIT 4.0 - 6.0 ADA THERAPEUTIC TARGET < 7.0 ACTION SUGGESTED > 7.0 Performed By: #### A 1C #### [facility] [address] [place] [address] Dr. Scott Mukherjee Glucose [Mass/Vol] 91 mg/dL Normal [facility] Comment on above: Performed By: #### A 1C #### [facility] [address] [address] [address] Scott Mukherjee HbA1c (Bld) [Mass fraction] 4.8 % Normal 4.5-6.2 [facility] Comment on above: Performed By: #### A 1C #### [facility] [address] [place] [address] Dr. Scott Mukherjee IRONon 09-10-2021 Iron [Mass/Vol] 52.0 ug/dL Normal 50.0-170.0 [facility] Comment on above: Performed By: #### I CLAYTON #### [facility] [address] [address] [address] Scott Mukherjee LIPID PROFILEon 09-10-2021 CHOL-HDL RATIO NORM SEE BELOW Normal [facility] Comment on above: Result Comment: 3.3 - 4.4 LOW RISK 4.4 - 7.1 AVERAGE RISK 7.1 - 11.0 MODERATE RISK >11.0 HIGH RISK Performed By: #### T 7, LIPID, TSH, CMP #### [facility] [address] [address] [address] Scott Mukherjee Cholesterol [Mass/Vol] 220 mg/dL Critically high <=[address] [facility] Comment on above: Performed By: #### T 7, LIPID, TSH, CMP #### [facility] [address] [address] [address] Scott Mukherjee Cholesterol in HDL [Mass/Vol] 61 mg/dL Critically high 40-[address] [facility] Comment on above: Performed By: #### T 7, LIPID, TSH, CMP #### [facility] [address] [address] [address] Scott Mukherjee Cholesterol in LDL [Mass/Vol] 137.2 mg/dL Normal [facility] Comment on above: Performed By: #### T 7, LIPID, TSH, CMP #### [facility] [address] [address] [address] Scott Mukherjee Cholesterol.total/Cho lesterol in HDL [Mass ratio] 3.6 {ratio} Normal [facility] Comment on above: Performed By: #### T 7, LIPID, TSH, CMP #### [facility] [address] [address] [address] Scott Mukherjee HDL NORMAL > or = 60 mg/dl - LO W CARDIOVASCULAR RISK <40 mg/dl - HIGH CARDIOVASCULAR RISK Normal [facility] Comment on above: Performed By: #### T 7, LIPID, TSH, CMP #### [facility] [address] [address] [address] Scott Mukherjee LDL CALC NORMAL SEE BELOW Normal [facility] Comment on above: Result Comment: <100 mg/dl OPTIMAL 100 - 129 mg/dl NEAR OR ABOVE OPTIMAL 130 - 159 mg/dl BORDERLINE HIGH 160 - 189 mg/dl HIGH >190 mg/dl VERY HIGH Performed By: #### T 7, LIPID, TSH, CMP #### [facility] [address] [address] [address] Scott Mukherjee Triglyceride [Mass/Vol] 109 mg/dL Normal <=[address] [facility] Comment on above: Performed By: #### T 7, LIPID, TSH, CMP #### [facility] [address] [address] [address] Scott Mukherjee VLDL CALC 21.8 mg/dL Normal [facility] Comment on above: Performed By: #### T 7, LIPID, TSH, CMP #### [facility] [address] [address] [address] Scott Mukherjee PROF 14(COMP METB)on 022 Albumin [Mass/Vol] 2.6 g/dL Critically low 3.4-5.0 [facility] Comment on above: Performed By: #### T 7, LIPID, TSH, CMP #### [facility] [address] [address] [address] Scott Mukherjee Albumin/Globulin [Mass ratio] 0.7 {ratio} Normal [facility] Comment on above: Performed By: #### T 7, LIPID, TSH, CMP #### [facility] [address] [place] [address] Dr. Scott Mukherjee ALP [Catalytic activity/Vol] 109 U/L Normal 46-116 [facility] Comment on above: Performed By: #### T 7, LIPID, TSH, CMP #### [facility] [address] [address] [address] Scott Mukherjee ALT [Catalytic activity/Vol] 25 U/L Normal 14-59 [facility] Comment on above: Performed By: #### T 7, LIPID, TSH, CMP #### [facility] [address] [address] [address] Scott Mukherjee Anion gap [Moles/Vol] 11.7 mmol/L Normal [facility] Comment on above: Performed By: #### T 7, LIPID, TSH, CMP #### [facility] [address] [address] [address] Scott Mukherjee AST [Catalytic activity/Vol] 18 U/L Normal 15-37 [facility] Comment on above: Performed By: #### T 7, LIPID, TSH, CMP #### [facility] [address] [place] [address] Dr. Scott Mukherjee Bilirubin [Mass/Vol] 0.2 mg/dL Normal 0.2-1.0 [facility] Comment on above: Performed By: #### T 7, LIPID, TSH, CMP #### [facility] [address] [address] [address] Scott Mukherjee Calcium [Mass/Vol] 9.0 mg/dL Normal 8.5-10.1 [facility] Comment on above: Performed By: #### T 7, LIPID, TSH, CMP #### [facility] [address] [place] [address] Dr. Scott Mukherjee Chloride [Moles/Vol] 103 mmol/L Normal 98-107 [facility] Comment on above: Performed By: #### T 7, LIPID, TSH, CMP #### [facility] [address] [place] [address] Dr. Scott Mukherjee CO2 [Moles/Vol] 27.8 mmol/L Normal 21.0-32.0 [facility] Comment on above: Performed By: #### T 7, LIPID, TSH, CMP #### [facility] [address] [place] [address] Dr. Scott Mukherjee Creatinine [Mass/Vol] 0.68 mg/dL Normal 0.55-1.02 [facility] Comment on above: Performed By: #### T 7, LIPID, TSH, CMP #### [facility] [address] [place] [address] Dr. Scott Mukherjee EGFR-AF SURINAMESE >60 Normal >=60 [facility] Comment on above: Performed By: #### T 7, LIPID, TSH, CMP #### [facility] [address] [place] [address] Dr. Scott Mukherjee EGFR-NON AF SURINAMESE >60 Normal >=60 [facility] Comment on above: Performed By: #### T 7, LIPID, TSH, CMP #### [facility] [address] [place] [address] Dr. Scott Mukherjee Globulin (S) [Mass/Vol] 3.9 g/dL Normal [facility] Comment on above: Performed By: #### T 7, LIPID, TSH, CMP #### [facility] [address] [place] [address] Dr. Scott Mukherjee Glucose [Mass/Vol] 98 mg/dL Normal 74-106 [facility] Comment on above: Performed By: #### T 7, LIPID, TSH, CMP #### [facility] [address] [address] [address] Scott Mukherjee Potassium [Moles/Vol] 4.5 mmol/L Normal 3.5-5.[address] [facility] Comment on above: Performed By: #### T 7, LIPID, TSH, CMP #### [facility] [address] [place] [address] Dr. Scott Mukherjee Protein [Mass/Vol] 6.5 g/dL Normal 6.4-8.2 [facility] Comment on above: Performed By: #### T 7, LIPID, TSH, CMP #### [facility] [address] [place] [address] Dr. Scott Mukherjee Sodium [Moles/Vol] 138 mmol/L Normal 136-145 [facility] Comment on above: Performed By: #### T 7, LIPID, TSH, CMP #### [facility] [address] [place] [address] Dr. Scott Mukherjee Urea nitrogen [Mass/Vol] 11.0 mg/dL Normal 7.0-18.[address] [facility] Comment on above: Performed By: #### T 7, LIPID, TSH, CMP #### [facility] [address] [place] [address] Dr. Scott Mukherjee Urea nitrogen/Creatinine [Mass ratio] 16.2 mg/mg Normal [facility] Comment on above: Performed By: #### T 7, LIPID, TSH, CMP #### [facility] [address] [place] [address] Dr. Scott Mukherjee TSHon 09-10-2021 TSH 1.858 uIU/mL Normal 0.358-3.740 [facility] Comment on above: Performed By: #### T 7, LIPID, TSH, CMP #### [facility] [address] [place] [address] Dr. Scott Mukherjee TSH RANGE SEE BELOW Normal [facility] Comment on above: Result Comment: <0.3 4 UIU/ml HYPERTHYROID 0.34-5.60 UIU/ml EUTHYROID >5.60 UIU/ml HYPOTHYROID Performed By: #### T 7, LIPID, TSH, CMP #### [facility] [address] [address] [address] Scott Mukherjee MG MAMM SCREEN PABLITO W CADon 0 09-07-2021 MG MAMM SCREEN PABLITO W CAD Patient: JOHNNA LUCAS Exam Date: 09/07/2021 : 1955 Gender:F Ordering : DR MANDIE PIERCE . Admission #: [id number] Family : Order #: [id number] CLICK HERE TO VIEW EXAM RADIOLOGY REPORT [...] breast cancer at age 73. LOCATION: [facility] BREAST COMPOSITION: Heterogeneously dense,which may obscure [...] MD on 09/07/2021 at 10:[address] [facility] Pap IG, rfx Aptima HPV, rfx /18,45on 01-22-2021 . . Normal [facility] Comment on above: Result Comment: Perf ormed at: WB Performed By: #### P APHR2A #### [facility] [address] [address] [address] Scott Mukherjee DIAGNOSIS: Comment Normal [facility] Comment on above: Result Comment: NEGA TIVE FOR INTRAEPITHELIAL LESION OR MALIGNANCY. CELLULAR CHANGES ASSOCIATED WITH ATROPHY ARE PRESENT. Performed at: WB Performed By: #### P APHR2A #### [facility] [address] [place] [address] Dr. Scott Mukherjee HPV Aptima Negative Normal Negative [facility] Comment on above: Result Comment: This nucleic acid amplification test detects fourteen high-risk HPV types (16,18,31,33,35,39,45,51,52,56,58,59,66,68) without differentiation. Performed at: =G Performed By: #### P APHR2A #### [facility] [address] [place] [address] Dr. Scott Mukherjee Methodology: Comment Normal [facility] Comment on above: Result Comment: This liquid based ThinPrep(R) pap test was screened with the use of an image guided system. Performed at: WB Performed By: #### P APHR2A #### [facility] [address] [place] [address] Dr. Scott Mukherjee Note: Comment Normal [facility] Comment on above: Result Comment: The Pap smear is a screening test designed to aid in the detection of premalignant and malignant conditions of the uterine cervix. It is not a diagnostic procedure and should not be used as the sole means of detecting cervical cancer. Both false-positive and false-negative reports do occur. . Performed at: WB Performed By: #### P APHR2A #### [facility] [address] [place] [address] Dr. Scott Mukherjee Performed by: Comment Normal [facility] Comment on above: Result Comment: Gale García, Suspension Cord Tier (ASCP) Performed at: WB Performed By: #### P APHR2A #### [facility] [address] [place] [address] Dr. Scott Mukherjee Specimen adequacy: Comment Normal [facility] Comment on above: Result Comment: Sati sfactory for evaluation. Endocervical component may not be distinguished in cases of atrophy. Performed at: WB Performed By: #### P APHR2A #### [facility] [address] [place], [place] [address] Dr. Scott Mukherjee Encounters Encounter Date Encounter Type Care Provider Facility Start: 09-10-2021 End: 09-11-[address] MANDIE PIERCE Facility:[facility] Start: 09-07-2021 End: 09-08-[address] MANDIE PIERCE Facility:[facility] Start: 01-28-2021 Encounter for gyneco logical examination (general) (routine) without abnormal findings FRANCIS CALVILLO [facility] Start: 01-19-2021 End: 01-19-2021 ambulatory FRANCIS KARLI Facility:[facility] Start: 01-19-2021 End: 01-19-2021 Encounter for gynecological examination (general) (routine) without abnormal findings FRANCIS KARLI Facility:[facility] Payers Date Payer Category Payer Medicare [id number] 1958 Unknown [id number] 1958 Unknown [id number] 1955 Unknown [id number] [id number] [id number] 1955 Unknown [id number] [id number] 1955 Unknown [id number] Summary Purpose Family History No Family History Records Found Advance Directives No Advanced Directives Records Found Additional Source Comments INFORMATION SOURCE (unrecogn ized section and content) DATE CREATED AUTHOR 09/17/2021 [facility] FOR RECORDS PERTAINING TO PATIENTS WHO [...] BE BASED ON THE PRIMARY CLINICAL RECORDS. [facility]. provides no warranty or guarantee of the accuracy or completeness of information in this document.
== END 2024-10-02 08:35 | disposition home or self-care (01) ==
LOC: MRI 08:34
PROVIDERS: PCP Family Medicine; Visit Provider Family Medicine
DX: M54.12 Radiculopathy, cervical region (principal); E28.39 Other primary ovarian failure; M50.30 Other cervical disc degeneration, unspecified cervical region; M85.80 Other specified disorders of bone density and structure, unspecified site
CPT/HCPCS: 72141; 77080

== ENCOUNTER 2024-11-05 22:16 | Outpatient (REF) | payer MEDICARE, BC, SELFPAY ==
--- OUTSIDE RECORDS SUMMARY | 2024-11-05 22:21 | XMS_ITS | CCD ---
Author Organization [facility] Team Providers Care Analytical Chemist Name Role Phone FRANCIS CALVILLO Admitting Unavailable KARI, DR LOCKWOOD Primary Care Unavailable FRANCIS CALVILLO Attending Unavailable FRANCIS CALVILLO Consulting Unavailable KARI, DR LOCKWOOD Primary Care Unavailable KARI, DR LOCKWOOD Admitting Unavailable KARI, DR LOCKWOOD Attending Unavailable KARI, DR LOCKWOOD Consulting Unavailable KARI, DR LOCKWOOD Admitting Unavailable KARI, DR LOCKWOOD Attending Unavailable NEY, DR LUTHER Soares Consulting Unavailable KARI, DR LOCKWOOD Primary Care Unavailable Unavailable Primary Care Provider Unavailabl e Allergies Allergy Classification Reported Allergen(s) Allergy Type Date of Onset Reaction(s) Facility (1 source) Codeine Drug Allergy 5 [facility] (1 source) Sulfonamides (Antibiotic) Drug allergy (disorder) 5 [facility] (2 sources) Sulfamethoxazole / Trimethoprim Drug Allergy 5 [facility] Medications Current Medications Medication Drug Class(es) Dates Sig (Normalized) Sig (Original) aspirin 81 mg delayed release oral tablet (3 sources) Platelet Aggregation Inhibitor, Nonsteroidal Anti-inflammatory Drug End: 11-05-2024 aspirin 81 MG EC tablet 1 (one) time each day at the same time 11/05/2024 Discontinued baclofen 20 mg oral tablet (3 sources) gamma-Aminobutyri c Acid-ergic Agonist End: 11-05-2024 baclofen (Lioresal) 20 MG tablet every 8 (eight) hours 11/05/2024 Discontinued calcium carbonate 500 mg oral tablet (3 sources) calcium carbonat e (Os-Perfecto) 1250 (500 Ca) MG tablet every 12 (twelve) hours Active cholecalciferol 0.05 mg oral capsule (2 sources) Vitamin D take 1 capsule by mouth in the morning cholecalciferol (Vitamin D-3) 50 MCG (2000 UT) capsule Take 2,000 Units by mouth in the morning and 2,000 Units before bedtime. Active diphenhydrAMINE hydrochloride 50 mg oral tablet (2 sources) Histamine-1 Receptor Antagonist diphenhydrAMINE (BENADryl) 50 MG tablet Take 50 mg by mouth as needed at bedtime for sleep Active estradiol 0.1 mg/ml vaginal cream (2 sources) Estrogen Start: 11-05-2024 estradiol (Estrace) 0.1 MG/GM vaginal cream Indications: Vaginal itching , Hot flashes due to menopause 2g vaginal daily for 2 weeks, then 2 times weekly following initial 2 weeks 42.5 g 11/05/2024 Active Start: 11-05-2024 estradiol (Est race) 0.1 MG/GM vaginal cream Indications: Vaginal itching , Hot flashes due to menopause 2g vaginal daily for 2 weeks, then 2 times weekly following initial 2 weeks 42.5 g 11/05/2024 Active ferrous fumarate 325 mg oral tablet (2 sources) take 1 tablet by mouth in the morning Ferrous Fumarate 325 (106 Fe) MG tablet Take 1 tablet by mouth in the morning and 1 tablet before bedtime. Active meloxicam 15 mg oral tablet (3 sources) Nonsteroidal Anti-inflammatory Drug meloxicam (Mobic) 15 MG tablet 1 (one) time each day at the same time Active OMEGA 3-6-9 FATTY ACIDS PO (2 sources) take 1 dose by mouth once daily OMEGA 3-6-9 FATTY ACIDS PO Take 1 each by mouth Daily Active omeprazole 20 mg delayed release oral capsule (3 sources) Proton Pump Inhibitor omeprazole (PriLOSEC) [address] capsule 1 capsule 1 (one) time each day at the same time Active simvastatin 20 mg oral tablet (2 sources) HMG-CoA Reductase Inhibitor Start: 025 take 1 tablet by mouth at bedtime simvastatin (Zocor) 20 MG tablet Take 20 mg by mouth at bedtime 11/02/2024 Active sulfaSALAzine 500 mg oral tablet (2 sources) Aminosalicylate Start: 016 take 2 tablets by mouth in the morning sulfaSALAzine (Azulfidine) 500 MG tablet Take 1,000 mg by mouth in the morning and 1,000 mg before bedtime. 04/08/2016 Active Problems Problem Classification Problem Date Documented Date Episodic/Chronic Deficiency and other anemia (1 source) [...] fatigue; Translations: [OTHER FATIGUE] Onset: 09-16-2021 Episodic Menopausal disorders (2 sources) Menopausal flushing; Translations: [Menopausal and female climacteric states] 11-05-2024 Chronic Other female genital disorders (2 sources) Pruritus of vagina; Translations: [Other specified noninflammatory disorders of vagina] 11-05-2024 Episodic Other screening for suspected conditions (not [...] # 0.0 103/ul Normal 0.0-0.1 [facility] Comment on above: Performed By: #### C BC #### [facility] [address] [place] [address] Dr. Scott Mukherjee Basophils/100 WBC (Bld) 0.7 % Normal 0.2-2.0 [facility] Comment on above: Performed By: #### C BC #### [facility] [address] [address] [address] Scott Mukherjee EO # 0.0 103/ul Normal 0.0-0.7 [facility] Comment on above: Performed By: #### C BC #### [facility] [address] [address] [address] Scott Mukherjee Eosinophils/100 WBC (Bld) 0.7 % Critically low 0.9-7.0 [facility] Comment on above: Performed By: #### C BC #### [facility] [address] [place] [address] Dr. Scott Mukherjee Erythrocyte distribution width (RBC) [Ratio] 14.5 % Normal 11.0-15.0 [facility] Comment on above: Performed By: #### C BC #### [facility] [address] [place] [address] Dr. Scott Mukherjee Hematocrit (Bld) [Volume fraction] 40.9 % Normal 36.0-48.0 [facility] Comment on above: Performed By: #### C BC #### [facility] [address] [place] [address] Dr. Scott Mukherjee Hemoglobin (Bld) [Mass/Vol] 12.4 g/dL Normal 12.0-16.0 [facility] Comment on above: Performed By: #### C BC #### [facility] [address] [place] [address] Dr. Scott Mukherjee IG # 0.03 10e3/ul Normal 0.00-0.03 [facility] Comment on above: Performed By: #### C BC #### [facility] [address] [place] [address] Dr. Scott Mukherjee IG % 0.5 % Normal 0.0-0.5 [facility] Comment on above: Performed By: #### C BC #### [facility] [address] [place] [address] Dr. Scott Mukherjee LYMPH # 1.3 103/ul Normal 1.2-3.8 [facility] Comment on above: Performed By: #### C BC #### [facility] [address] [place] [address] Dr. Scott Mukherjee Lymphocytes/100 WBC (Bld) 21.0 % Normal 20.5-60.0 [facility] Comment on above: Performed By: #### C BC #### [facility] [address] [place] [address] Dr. Scott Mukherjee MANUAL DIFF REQ NO Normal [facility] Comment on above: Performed By: #### C BC #### [facility] [address] [address] [address] Scott Mukherjee MCH (RBC) [Entitic mass] 26.7 pg Normal 26.7-34.0 [facility] Comment on above: Performed By: #### C BC #### [facility] [address] [place] [address] Dr. Scott Mukherjee MCHC (RBC) [Mass/Vol] 30.3 g/dL Normal 29.9-35.2 [facility] Comment on above: Performed By: #### C BC #### [facility] [address] [place] [address] Dr. Scott Mukherjee MCV (RBC) [Entitic vol] 88.1 fL Normal 81.0-99.0 [facility] Comment on above: Performed By: #### C BC #### [facility] [address] [place] [address] Dr. Scott Mukherjee MONO # 0.4 103/ul Normal 0.3-0.8 [facility] Comment on above: Performed By: #### C BC #### [facility] [address] [place] [address] Dr. Scott Mukherjee Monocytes/100 WBC (Bld) 6.4 % Normal 1.7-12.0 [facility] Comment on above: Performed By: #### C BC #### [facility] [address] [place] [address] Dr. Scott Mukherjee NEUT # 4.3 103/ul Normal 1.4-6.5 [facility] Comment on above: Performed By: #### C BC #### [facility] [address] [place] [address] Dr. Scott Mukherjee Neutrophils/100 WBC (Bld) 70.7 % Normal 43.0-75.0 [facility] Comment on above: Performed By: #### C BC #### [facility] [address] [place] [address] Dr. Scott Mukherjee Platelet mean volume (Bld) [Entitic vol] 9.7 fL Normal 9.5-13.5 [facility] Comment on above: Performed By: #### C BC #### [facility] [address] [address] [address] Scott Mukherjee PLT 387 103/ul Normal 150-450 [facility] Comment on above: Performed By: #### C BC #### [facility] [address] [address] [address] Scott Mukherjee RBC 4.64 106/ul Normal 4.20-5.40 [facility] Comment on above: Performed By: #### C BC #### [facility] [address] [address] [address] Scott Mukherjee WBC 6.1 103/ul Normal 4.0-11.0 [facility] Comment on above: Performed By: #### C BC #### [facility] [address] [place] [address] Dr. Scott Mukherjee FREE THYROXINE INDEX T7on FTI 3.49 Normal 1.30-4.50 [facility] Comment on above: Performed By: #### T 7, LIPID, TSH, CMP #### [facility] [address] [place] [address] Dr. Scott Mukherjee T3U 32.0 % Normal 30.0-39.0 [facility] Comment on above: Performed By: #### T 7, LIPID, TSH, CMP #### [facility] [address] [place] [address] Dr. Scott Mukherjee T4 [Mass/Vol] 10.90 ug/dL Normal 4.80-13.90 [facility] Comment on above: Performed By: #### T 7, LIPID, TSH, CMP #### [facility] [address] [place] [address] Dr. Scott Mukherjee GLYCOHEMOGLOBIN A1Con 2021 ADA RECOMMENDATION SEE BELOW Normal [facility] Comment on above: Result Comment: ADA RECOMMENDED LIMIT 4.0 - 6.0 ADA THERAPEUTIC TARGET < 7.0 ACTION SUGGESTED > 7.0 Performed By: #### A 1C #### [facility] [address] [place] [address] Dr. Scott Mukherjee Glucose [Mass/Vol] 91 mg/dL Normal [facility] Comment on above: Performed By: #### A 1C #### [facility] [address] [place] [address] Dr. Scott Mukherjee HbA1c (Bld) [Mass fraction] 4.8 % Normal 4.5-6.2 [facility] Comment on above: Performed By: #### A 1C #### [facility] [address] [place] [address] Dr. Scott Mukherjee IRONon 09-10-2021 Iron [Mass/Vol] 52.0 ug/dL Normal 50.0-170.0 [facility] Comment on above: Performed By: #### I CLAYTON #### [facility] [address] [place] [address] Dr. Scott Mukherjee LIPID PROFILEon 09-10-2021 CHOL-HDL RATIO NORM SEE BELOW Normal [facility] Comment on above: Result Comment: 3.3 - 4.4 LOW RISK 4.4 - 7.1 AVERAGE RISK 7.1 - 11.0 MODERATE RISK >11.0 HIGH RISK Performed By: #### T 7, LIPID, TSH, CMP #### [facility] [address] [place] [address] Dr. Scott Mukherjee Cholesterol [Mass/Vol] 220 mg/dL Critically high <=200 [facility] Comment on above: Performed By: #### T 7, LIPID, TSH, CMP #### [facility] [address] [place] [address] Dr. Scott Mukherjee Cholesterol in HDL [Mass/Vol] 61 mg/dL Critically high 40-60 [facility] Comment on above: Performed By: #### T 7, LIPID, TSH, CMP #### [facility] [address] [address] [address] Scott Mukherjee Cholesterol in LDL [Mass/Vol] 137.2 mg/dL Normal [facility] Comment on above: Performed By: #### T 7, LIPID, TSH, CMP #### [facility] [address] [place] [address] Dr. Scott Mukherjee Cholesterol.total/Cho lesterol in HDL [Mass ratio] 3.6 {ratio} Normal [facility] Comment on above: Performed By: #### T 7, LIPID, TSH, CMP #### [facility] [address] [address] [address] Scott Mukherjee HDL NORMAL > or = 60 mg/dl - LO W CARDIOVASCULAR RISK <40 mg/dl - HIGH CARDIOVASCULAR RISK Normal [facility] Comment on above: Performed By: #### T 7, LIPID, TSH, CMP #### [facility] [address] [address] [address] Scott Mukherjee LDL CALC NORMAL SEE BELOW Normal [facility] Comment on above: Result Comment: <100 mg/dl OPTIMAL 100 - 129 mg/dl NEAR OR ABOVE OPTIMAL 130 - 159 mg/dl BORDERLINE HIGH 160 - 189 mg/dl HIGH >190 mg/dl VERY HIGH Performed By: #### T 7, LIPID, TSH, CMP #### [facility] [address] [address] [address] Scott Mukherjee Triglyceride [Mass/Vol] 109 mg/dL Normal <=150 [facility] Comment on above: Performed By: #### T 7, LIPID, TSH, CMP #### [facility] [address] [address] [address] Scott Mukherjee VLDL CALC 21.8 mg/dL Normal [facility] Comment on above: Performed By: #### T 7, LIPID, TSH, CMP #### [facility] [address] [address] [address] Scott Mukherjee PROF 14(COMP METB)on 022 Albumin [Mass/Vol] 2.6 g/dL Critically low 3.4-5.[address] [facility] Comment on above: Performed By: #### T 7, LIPID, TSH, CMP #### [facility] [address] [place] [address] Dr. Scott Mukherjee Albumin/Globulin [Mass ratio] 0.7 {ratio} Normal [facility] Comment on above: Performed By: #### T 7, LIPID, TSH, CMP #### [facility] [address] [place] [address] Dr. Scott Mukherjee ALP [Catalytic activity/Vol] 109 U/L Normal 46-116 [facility] Comment on above: Performed By: #### T 7, LIPID, TSH, CMP #### [facility] [address] [place] [address] Dr. Scott Mukherjee ALT [Catalytic activity/Vol] 25 U/L Normal 14-59 [facility] Comment on above: Performed By: #### T 7, LIPID, TSH, CMP #### [facility] [address] [address] [address] Scott Mukherjee Anion gap [Moles/Vol] 11.7 mmol/L Normal Th [facility] Comment on above: Performed By: #### T 7, LIPID, TSH, CMP #### [facility] [address] [place] [address] Dr. Scott Mukherjee AST [Catalytic activity/Vol] 18 U/L Normal 15-37 [facility] Comment on above: Performed By: #### T 7, LIPID, TSH, CMP #### [facility] [address] [place] [address] Dr. Scott Mukherjee Bilirubin [Mass/Vol] 0.2 mg/dL Normal 0.2-1.0 [facility] Comment on above: Performed By: #### T 7, LIPID, TSH, CMP #### [facility] [address] [place] [address] Dr. Scott Mukherjee Calcium [Mass/Vol] 9.0 mg/dL Normal 8.5-10.1 [facility] Comment on above: Performed By: #### T 7, LIPID, TSH, CMP #### [facility] [address] [place] [address] Dr. Scott Mukherjee Chloride [Moles/Vol] 103 mmol/L Normal 98-107 [facility] Comment on above: Performed By: #### T 7, LIPID, TSH, CMP #### [facility] [address] [place] [address] Dr. Scott Mukherjee CO2 [Moles/Vol] 27.8 mmol/L Normal 21.0-32.0 [facility] Comment on above: Performed By: #### T 7, LIPID, TSH, CMP #### [facility] [address] [address] [address] Scott Mukherjee Creatinine [Mass/Vol] 0.68 mg/dL Normal 0.55-1.02 [facility] Comment on above: Performed By: #### T 7, LIPID, TSH, CMP #### [facility] [address] [address] [address] Scott Mukherjee EGFR-AF NAMIBIAN >60 Normal >=60 [facility] Comment on above: Performed By: #### T 7, LIPID, TSH, CMP #### [facility] [address] [address] [address] Scott Mukherjee EGFR-NON AF NAMIBIAN >60 Normal >=60 [facility] Comment on above: Performed By: #### T 7, LIPID, TSH, CMP #### [facility] [address] [place] [address] Dr. Scott Mukherjee Globulin (S) [Mass/Vol] 3.9 g/dL Normal [facility] Comment on above: Performed By: #### T 7, LIPID, TSH, CMP #### [facility] [address] [address] [address] Scott Mukherjee Glucose [Mass/Vol] 98 mg/dL Normal 74-106 [facility] Comment on above: Performed By: #### T 7, LIPID, TSH, CMP #### [facility] [address] [address] [address] Scott Mukherjee Potassium [Moles/Vol] 4.5 mmol/L Normal 3.5-5.1 [facility] Comment on above: Performed By: #### T 7, LIPID, TSH, CMP #### [facility] [address] [address] [address] Scott Mukherjee Protein [Mass/Vol] 6.5 g/dL Normal 6.4-8.2 [facility] Comment on above: Performed By: #### T 7, LIPID, TSH, CMP #### [facility] [address] [address] [address] Scott Mukherjee Sodium [Moles/Vol] 138 mmol/L Normal 136-145 [facility] Comment on above: Performed By: #### T 7, LIPID, TSH, CMP #### [facility] [address] [address] [address] Scott Mukherjee Urea nitrogen [Mass/Vol] 11.0 mg/dL Normal 7.0-18.0 [facility] Comment on above: Performed By: #### T 7, LIPID, TSH, CMP #### [facility] [address] [address] [address] Scott Mukherjee Urea nitrogen/Creatinine [Mass ratio] 16.2 mg/mg Normal [facility] Comment on above: Performed By: #### T 7, LIPID, TSH, CMP #### [facility] [address] [place] [address] Dr. Scott Mukherjee TSHon 09-10-2021 TSH 1.858 uIU/mL Normal 0.358-3.740 [facility] Comment on above: Performed By: #### T 7, LIPID, TSH, CMP #### [facility] [address] [place] [address] Dr. Scott Mukherjee TSH RANGE SEE BELOW Normal [facility] Comment on above: Result Comment: <0.3 4 UIU/ml HYPERTHYROID 0.34-5.60 UIU/ml EUTHYROID >5.60 UIU/ml HYPOTHYROID Performed By: #### T 7, LIPID, TSH, CMP #### [facility] [address] [place] [address] Dr. Scott Mukherjee MG MAMM SCREEN PABLITO W CADon 0 09-07-2021 MG MAMM SCREEN PABLITO W CAD Patient: DAWNA LUCAS Exam Date: 09/07/2021 : 1955 Gender:F Ordering : DR MANDIE PIERCE . Admission #: [id number] Family : Order #: [id number] CLICK HERE TO VIEW EXAM RADIOLOGY REPORT [...] breast cancer at age 73. LOCATION: [facility] BREAST COMPOSITION: Heterogeneously dense,which may obscure small [...] Ge MD on 09/07/2021 at 10:56 Normal [facility] Pap IG, rfx Aptima HPV, rfx 16/18,45on 01-22-2021 . . Normal [facility] Comment on above: Result Comment: Perf ormed at: WB Performed By: #### P APHR2A #### [facility] [address] [place] [address] Dr. Scott Mukherjee DIAGNOSIS: Comment Normal [facility] Comment on above: Result Comment: NEGA TIVE FOR INTRAEPITHELIAL LESION OR MALIGNANCY. CELLULAR CHANGES ASSOCIATED WITH ATROPHY ARE PRESENT. Performed at: WB Performed By: #### P APHR2A #### [facility] [address] [address] [address] Scott Mukherjee HPV Aptima Negative Normal Negative [facility] Comment on above: Result Comment: This nucleic acid amplification test detects fourteen high-risk HPV types (16,18,31,33,35,39,45,51,52,56,58,59,66,68) without differentiation. Performed at: =G Performed By: #### P APHR2A #### [facility] [address] [place] [address] Dr. Scott Mukherjee Methodology: Comment Normal [facility] Comment on above: Result Comment: This liquid based ThinPrep(R) pap test was screened with the use of an image guided system. Performed at: WB Performed By: #### P APHR2A #### [facility] [address] [address] [address] Scott Mukherjee Note: Comment Normal [facility] Comment on above: Result Comment: The Pap smear is a screening test designed to aid in the detection of premalignant and malignant conditions of the uterine cervix. It is not a diagnostic procedure and should not be used as the sole means of detecting cervical cancer. Both false-positive and false-negative reports do occur. . Performed at: WB Performed By: #### P APHR2A #### [facility] [address] [address] [address] Scott Mukherjee Performed by: Comment Normal [facility] Comment on above: Result Comment: Gale García, Talent Development Coordinator (ASCP) Performed at: [facility] Performed By: #### P APHR2A #### [facility] [address] [place] [address] Dr. Scott Mukherjee Specimen adequacy: Comment Normal [facility] Comment on above: Result Comment: Sati sfactory for evaluation. Endocervical component may not be distinguished in cases of atrophy. Performed at: WB Performed By: #### P APHR2A #### [facility] [address] [place] [address] Dr. Scott Mukherjee Vital Signs Date Time Vital Sign Value Performing Clinician [facility] 11-05-2024 13:26-040 Body height 157.5 cm aGle BASURTO Work Phone: [facility] 11-05-2024 13:26-0400 Body mass index (BMI) [Ratio] 31.09 kg/m2 Gale BASURTO Work Phone: [facility] 11-05-2024 13:26-040 Body weight 77.11 kg Gale BASURTO Work Phone: [facility] 11-05-2024 13:26-0400 Diastolic blood pressure 80 mm[Hg] Gale BASURTO Work Phone: [facility] 11-05-2024 13:26-0400 Systolic blood pressure 132 mm[Hg] Gale BASURTO Work Phone: [facility] Encounters Encounter Date Encounter Type Care Provider Facility Start: 11-05-2024 End: 11-05-2024 Bamboo flowsheet Gale BASURTO Work Phone: [facility] Start: 11-05-2024 End: 11-05-2024 Bamboo flowsheet Gale BASURTO Work Phone: [facility] Start: 11-05-2024 End: 11-05-2024 Patient encounter procedure Gale BASURTO Work Phone: [facility] Work Phone: Start: 11-05-2024 End: 11-05-2024 Periodic preventive med est patient 65yrs& older Gale BASURTO Work Phone: [facility] Comment on above: Well woman exam with routine gynecological exam; Vaginal itching; Hot flashes due to menopause Start: 09-10-2021 End: 09-11-[address] MANDIE PIERCE Facility:[facility] Start: 09-07-2021 End: 09-08-[address] MANDIE PIERCE Facility:[facility] Start: 01-28-2021 Encounter for gynecological examination (general) (routine) without abnormal findings FRANCIS CALVILLO [facility] Start: 01-19-2021 End: 01-19-2021 ambulatory FRANCIS CALVILLO Facility:[facility] Start: 01-19-2021 End: 01-19-2021 Encounter for gynecological examination (general) (routine) without abnormal findings FRANCIS CALVILLO Facility:[facility] Plan of Treatment Date Care Activity Detail Author Start: 04-09-2026 Pneumococcal Vaccine : 65+ Years (3 of 3 - PCV20 or PCV21) Pneumococcal Vaccine: 65+ Years (3 of 3 - PCV20 or PCV21) [facility] Start: 12-24-2024 Influenza vaccination Influenza Vacc ine (#1) [facility] Start: 11-05-2024 End: 11-05-2024 Patient encounter procedure 11/05/2024 1:00 PM EDT Office Visit [facility] [address] [place] [id number] Gale Larkin PA [address] [place] [address] Arrived [facility] Comment on above: Arrived Start: 1996 Screening for malign ant neoplasm of breast Mammogram [facility] Start: 1955 Screening for malign ant neoplasm of colon [facility] THIN PREP TIS PAP AN D HR HPV DNA THIN PREP TIS PAP AND HR HPV DNA Pathology and Cytology Routine Well woman exam with routine gynecological exam Ordered: 11/05/2024 [facility] Work Phone: Comment on above: Ordered: 11/05/2024 Immunizations Immunization Date Immunization Notes Care Provider Fa cility 02-26-2024 influenza virus vacc ine, unspecified formulation Gale BASURTO Work Phone: [facility] Healthcare Payers Date Payer Category Payer [facility] BCBS [id number] 2021 Medicare MEDICARE [id number] 1959 Medicare [id number] 1959 Unknown [id number] 1959 Unknown [id number] 1955 Unknown [id number] 1955 Unknown [id number] 1955 Unknown [id number] Social History Date Type Detail Facility Tobacco smoking stat [facility] Tobacco smoking consumption unknown [facility] Start: 1955 Sex assigned at Not on file [facility] Gender identity Not on file [facility] History of Present illness Narrative 11-05-2024 SB Benitez - 11/05/2024 1:00 PM EDT Note Date & Type Note Facility 11-05-2024 History of Presen t illness Narrative Reason for Appointment: Patient ID: Dawna Lucas is a 69 y.o. female who presents for Well Women Visit and Vaginal Itching Patient presents today for Well visit and Vaginal itching. MEDICATIONS Current Outpatient Medications Medication Instructions calcium carbonate (Os-Perfecto) 1250 (500 Ca) MG tablet Every 12 hours cholecalciferol (VITAMIN D-3) 2,000 Units, 2 times daily diphenhydrAMINE (BENADRYL) 50 mg, Nightly PRN estradiol (Estrace) 0.1 MG/GM vaginal cream 2g vaginal daily for 2 weeks, then 2 times weekly following initial 2 weeks Ferrous Fumarate 325 (106 Fe) MG tablet 1 tablet, Oral, 2 times daily meloxicam (Mobic) 15 MG tablet Every 24 hours OMEGA 3-6-9 FATTY ACIDS PO 1 each, Daily omeprazole (PriLOSEC) [address] capsule 1 capsule, Every 24 hours simvastatin (ZOCOR) 20 mg, Nightly sulfaSALAzine (AZULFIDINE) 1,000 mg, 2 times daily ALLERGIES Allergies Allergen Reactions Bactrim [Sulfamethoxazole-Trimethoprim] PROBLEMS Active Ambulatory Problems Diagnosis Date Noted No Active Ambulatory Problems Resolved Ambulatory Problems Diagnosis Date Noted No Resolved Ambulatory Problems Past Medical History: Diagnosis Date Arthritis High cholesterol HISTORY PAST MEDICAL HISTORY SOCIAL HISTORY Past Medical History: Diagnosis Date Arthritis High cholesterol Social History Tobacco Use Smoking status: Not on file Smokeless tobacco: Not on file Substance Use Topics Alcohol use: Not on file Drug use: Not on file FAMILY HISTORY Family History Problem Relation Name Age of Onset Breast cancer Mother 65 estrogen receptive SURGICAL HISTORY Past Surgical History: Procedure Laterality Date ANKLE SURGERY SECTION, LOW TRANSVERSE SECTION, LOW TRANSVERSE SECTION, LOW TRANSVERSE REVIEW OF SYSTEMS Review of Systems: Review of Systems All other systems reviewed and are negative. OBJECTIVE Objective: Physical Exam Constitutional: Appearance: Normal appearance. She is well-developed. Genitourinary: Vulva normal. Right Adnexa: not tender and no mass present. Left Adnexa: not tender and no mass present. No cervical discharge. Breasts: Breasts are soft. Right: Normal. Left: Normal. HENT: Head: Normocephalic. Nose: Nose normal. Mouth/Throat: Mouth: Mucous membranes are moist. Cardiovascular: Rate and Rhythm: Normal rate and regular rhythm. Pulmonary: Effort: Pulmonary effort is normal. Breath sounds: Normal breath sounds. Abdominal: General: Bowel sounds are normal. There is no distension. Palpations: Abdomen is soft. Tenderness: There is no abdominal tenderness. There is no guarding or rebound. Musculoskeletal: General: No swelling. Normal range of motion. Cervical back: Normal range of motion. Right lower leg: No edema. Left lower leg: No edema. Neurological: General: No focal deficit present. Mental Status: She is alert and oriented to person, place, and time. Skin: General: Skin is warm and dry. Psychiatric: Mood and Affect: Mood normal. Behavior: Behavior normal. Vitals and nursing note reviewed. Exam conducted with a surveying or spatial science technician present. Vitals: Estimated body mass index is 31.09 kg/m as calculated from the following: Height as of this encounter: 5' 2 . Weight as of this encounter: 170 lb. BP: 132/80 No LMP recorded. Patient is postmenopausal. ASSESSMENT & PLAN ICD-10-CM 1. Well woman exam with routine gynecological exam Z01.419 THIN PREP TIS PAP AND HR HPV DNA 2. Vaginal itching N89.8 estradiol (Estrace) 0.1 MG/GM vaginal cream 3. Hot flashes due to menopause N95.1 estradiol (Estrace) 0.1 MG/GM vaginal cream Annual Exam: Patient presents today for an annual exam. Patient states she is doing well and has no complaints. Pap was obtained without difficulty. Patient is having some vaginal itching and we will start medication at this time. Patient is having hot flashes and we will see how this does work and she will have a telehealth visit in 4-6 weeks to see if additional medication is needed. Patient has had family history of Breast cancer and will not sure Estrogen. Patient does have pain with intercourse and advised this will help. Follow Up: Patient is to return in one year for annual unless needed otherwise. Documented by Sondra Cuello LPN on behalf of: SB Benitez documented in this encounter [facility] Evaluation note Note Date & Type Note Facility Evaluation note Diagnosis Well woman exam with routine gynecological exam Routine gynecological examination Vaginal itching Pruritus of genital organs Hot flashes due to menopause documented in this encounter [facility] Summary Purpose Family History No Family History Records Found Advance Directives No Advanced Directives Records Found Additional Source Comments INFORMATION SOURCE (unrecogn ized section and content) DATE CREATED AUTHOR 09/17/2021 The Jorge zavala Reason for Visit (unrecogniz ed section and content) Reason Comments Well Women Visit Vaginal Itching FOR RECORDS PERTAINING TO PATIENTS WHO ARE [...] BE BASED ON THE PRIMARY CLINICAL RECORDS. [employer] provides no warranty or guarantee of the accuracy or completeness of information in this document.
[2024-11-08 12:08] LABS: Age Gdln ACOG Testing Note (.); Pap IG (Image Guided) Note (.)
== END 2024-11-05 22:17 | disposition home or self-care (01) ==
LOC: LAB 22:16
PROVIDERS: PCP Family Medicine; Visit Provider Physician Assistant
DX: Z01.419 Encounter for gynecological examination (general) (routine) without abnormal findings (principal)
CPT/HCPCS: 88175

== ENCOUNTER 2025-02-11 08:05 | Outpatient (OUT) | payer MEDICARE, BC, SELFPAY ==
--- OUTSIDE RECORDS SUMMARY | 2025-01-28 06:00 | XMS_ITS ---
Author Organization [facility] in [place] Address [address] [place] [address] Care Team Providers Care Gravity Flow Irrigator Name Role Phone Galindo Porter Primary Care Provider Allergies Allergen (clinical drug ingredient) Drug/Non Drug Allergy documented on EMR Reaction Allergy Type Onset Date Status sulfamethoxazole / trimethoprim Bactrim rash Drug Allergy Active codeine Codeine nightmare Drug Allergy Active REASON FOR VISIT Presents to office with for large lump right wrist x1 week. Denies any pain Medications Medication SIG (Take, Route, Frequency, Duration) Notes Start Date End Date Status Pioche-3 Fish Oil Act odette Omeprazole 40 MG TAKE ONE CAPSULE BY MOUTH DAILY; Duration: 90 Active Simvastatin 20 MG TAKE ONE TABLET BY M OUTH EVERY EVENING; Duration: 90 days Active sulfaSALAzine 500 MG TAKE 2 TABLETS BY M OUTH TWICE A DAY; Duration: 90 days Active Vitamin D 50 MCG (1999 UT) 2 capsule Ora lly Once a day Active Calcium 600 MG 1 tablet with meals Orally Twice a day 09/22/2023 Active Ferrous Sulfate 325 (65 Fe) MG 1 tablet Orally BID Active Meloxicam 15 MG TAKE ONE TABLET BY M OUTH DAILY; Duration: 90 Active Social History Tobacco Use: Social History Observation Description Date Details (start date - stop date) Never Smoker NA - NA Tobacco Use/Smoking Question Answer Notes Patient is a nonsmoker AUDIT-C (Standard) Question Answer Notes Did you have a drink containing alcohol in the p ast year? No Points 0 Interpretation Negative Vital Signs Weight 169.6 lbs 01/28/2025 Height 64 in 01/28/2025 Blood pressure systolic 130 mm Hg 01/29/20 25 Blood pressure diastolic 62 mm Hg 025 BMI 29.11 kg/m2 01/28/2025 Encounters Encounter Location Date Provider Diagnosis [facility] [address] [place] [address] 01/28/2025 Galindo Porter Ganglion cyst M67.40 Assessments Encounter Date Diagnosis (ICD Code) Assessment Notes Treatment Notes Treatment Clinical Notes Section Notes 01/28/2025 Ganglion cyst (ICD-10 - M67.40) Plan Of Treatment No Information Progress Notes * Dawna LUCAS MDOB:[birth year] (69 yo F)Acc No.[id number]:01/28/2025 Progress Note Patient: Fany RutledgeATA Dawna Robbin Provider: Tomas Porter ([facility])MD :1955 A ge:69 Y S ex:Female Date:01/28/2025 Address:[address] [place] [address] [place], [place] [id number] Check In:09:56 AM ESTCheck O ut:10:22 AM EST Subjective: * Chief Complaints: * P resents to office with for large lump right wrist x1 week. Denies any pain * HPI: G eneral: R ant wrist hw swelling - popped up - no injury - never before. * Active Problem List Z00.00 Well adult Modified On:09/08/2022U Status:confirmed M62.830 Back muscle spasm Modified On:09/08/2022U Status:confirmed N39.0 Urinary tract infect ion Modified On:09/08/2022U Status:confirmed K25.9 Gastric ulcer Modified On:09/08/2022U Status:confirmed D50.9 Anemia, iron deficie ncy Modified On:09/13/2022U Status:confirmed K21.9 Gastro-esophageal re flux disease Modified On:09/08/2022U Status:confirmed M12.9 Arthritis involving multiple sites Modified On:09/08/2022U Status:confirmed R53.83 Fatigue Modified On:09/08/2022U Status:confirmed E78.5 Hyperlipidemia Modified On:09/13/2022U Status:confirmed M54.2 Neck pain Modified On:09/08/2022U Status:confirmed M54.50 Low back pain, unspe cified Modified On:09/08/2022 Status:confirmed K52.9 Colitis Modified On:09/13/2022U Status:confirmed E78.00 Pure hypercholestero lemia, unspecified Modified On:09/14/2022U Status:confirmed M54.12 Cervical radiculopat hy Modified On:09/27/2024U Status:confirmed E28.39 Decreased estrogen l evel Modified On:09/27/2024 Status:confirmed M85.80 Osteopenia Modified On:10/08/2024 Status:confirmed * Medical History: * Surgical History: C -section x3 Rt ankle fracture with surgical repair * Hospitalization/Major Diagno stic Procedure: * Family History: F ather: , diagnosed with Heart Disease. M other: , dementia, breast ca, diagnosed with Hypertension. B rother(s): alive, Prostate Ca. S on(s): alive. D jolene(s): alive, cardiac. 1 brother(s) . 2 son(s) , 1 daughter(s) . . * Social History: T obacco Use: T obacco Use/Smoking P atient is a n onsmoker D rug/Alcohol: A MARIA TERESA-C (Standard) D id you have a drink containing alcohol in the past year? N o P oints 0 I nterpretation N egative * Medications: T akingCalcium 600 MG Tablet 1 tablet with meals Orally Twice a day Ferrous Sulfate 325 (65 Fe) MG Tablet 1 tablet Orally BID Meloxicam 15 MG Tablet TAKE ONE TABLET BY MOUTH DAILY Pioche-3 Fish Oil Omeprazole 40 MG Capsule Delayed Release TAKE ONE CAPSULE BY MOUTH DAILY Simvastatin 20 MG Tablet TAKE ONE TABLET BY MOUTH EVERY EVENING sulfaSALAzine 500 MG Tablet TAKE 2 TABLETS BY MOUTH TWICE A DAY Vitamin D 50 MCG (1999 UT) Capsule 2 capsule Orally Once a day Medication List reviewed and reconciled with the patientTaking Calcium 600 MG Tablet 1 tablet with meals Orally Twice a day Taking Ferrous Sulfate 325 (65 Fe) MG Tablet 1 tablet Orally BID Taking Meloxicam 15 MG Tablet TAKE ONE TABLET BY MOUTH DAILY Taking Pioche-3 Fish Oil Taking Omeprazole 40 MG Capsule Delayed Release TAKE ONE CAPSULE BY MOUTH DAILY Taking Simvastatin 20 MG Tablet TAKE ONE TABLET BY MOUTH EVERY EVENING Taking sulfaSALAzine 500 MG Tablet TAKE 2 TABLETS BY MOUTH TWICE A DAY Taking Vitamin D 50 MCG (1999) Capsule 2 capsule Orally Once a day Medication List reviewed and reconciled with the patient * Allergies: C odeine: nightmare - Criticality HighBactrim: rashno[Allergies Verified] Objective: * Vitals: W t:169.6lbs, Ht: 64 in, BP:130/62mm Hg, BMI:29.11Index, Ht-cm: 162.56 cm, Wt-k.93 kg. * Physical Examination: R ant with with sabrina size ganglion cyst. Assessment: * Assessment: 1. Bobby selflion cyst - M67.40 (Primary) Plan: * Treatment: * Procedure Codes: * Preventive Medicine: Screenings/Counseling: B MS ACTION PLAN Above Normal BMI Follow-up D ietary management education, guidance, and counseling See treatment section of progress note for complete details of management plan. F ALL RISK SCREENING Fall Risk Assessment: N o falls in the past year * * Sign off status: Completed Visit Status: C HK (Check Out) true * Provider: Tomas Porter ([facility])MD Date: Generated for Anant choi/Dami/eTransmitting on: 08:07 AM EDT History and Physical Notes * HPI (History of Present Illness) Category Sub-Category Detail Notes Category Not es General R ant wrist hw swelling - popped up - no injury - never before Physical Examination Category Sub-Category Detail Notes Section Note s R ant with with sabrina size ganglion cyst
--- OUTSIDE RECORDS SUMMARY | 2025-01-28 06:15 | XMS_ITS ---
Author Organization [facility] in [place] Address [address] [place] [address] Care Team Providers Care Psychiatric Security Nurse Name Role Phone Galindo Porter Primary Care Provider Reason For Referral Diagnosis 1 Ganglion cyst (M67.4 0) Referral Organization [facility] Referring Provider First Name Galindo Referring Provider Last Name German Referring Provider [facility] Family [facility] icine Referred Provider Manish Weiss Referred Provider Specialty Orthopedic S urgery Referral Priority Routine REASON FOR VISIT ortho Encounters Encounter Location Date Provider Diagnosis [facility] [address] [place] [address] 01/28/2025 Galindo Porter Ganglion cyst M67.40 Assessments Encounter Date Diagnosis (ICD Code) Assessment Notes Treatment Notes Treatment Clinical Notes Section Notes 01/28/2025 Ganglion cyst (ICD-10 - M67.40) Plan Of Treatment Referrals Referral Date Details 01/28/2025 01/28/2025Manish Progress Notes * Dawna LUCAS MDOB:[birth year] (69 yo F)Acc No.[id number]:01/28/2025 Patient: Fany Dawna RODRIGEZ :1955 A ge:69 Y S ex:Female Address:[address], [place], [address] Subjective: * Chief Complaints: * O rtho * Medical History: * Surgical History: * Hospitalization/Major Diagno stic Procedure: * Medications: Objective: * Vitals: * Physical Examination: Assessment: * Assessment: 1. G angy cyst - M67.40 (Primary) Plan: * Treatment: * Procedure Codes: * true * Date: Generated for Anant choi/Dami/Meliza on: 08:06 AM EDT Consultation Request Notes Referral Date Referring Provider Referred Provider Not es 01/28/2025 Galindo Porter Justin
--- NOTE | 2025-02-11 | XR_ITS ---
The [address] [address] Patient Name: JOHNNA LUCAS MRN: [id number] date: 1955 Sex: F Assigned Patient Location: [facility] Current Patient Location: [facility] Accession/Order Number: [id number] Exam Date: 02/11/2025 09:40 Report Date: 02/11/2025 12:49 At the request of: LESLIE ARREOLA DO Procedure: XR wrist RT min 3V RIGHT WRIST - 3 views COMPARISON: None CLINICAL DATA: Lump at the right wrist for the past month. AP, lateral and oblique views were obtained. No fracture or dislocation is noted. There is minor degenerative change involving the first carpal metacarpal and metacarpal phalangeal joints. There is subtle soft tissue calcification projecting at the ulnar carpal interval which may be chondrocalcinosis at the triangular fibrocartilage complex. No additional soft tissue abnormalities are visualized. XR/XR wrist RT min 3V IMPRESSION: NO ACUTE BONY FINDINGS. Impression dictated by: Claire Webster M.D. 02/11/2025 12:49 PM Dictation Location: [place] [address] Electronically authenticated by: [id number] Y Date: 02/11/2025 12:49
--- OUTSIDE RECORDS SUMMARY | 2025-02-11 08:07 | XMS_ITS | Clinical Summary ---
Author Organization [facility] Address [address] [place] [address] Care Team Providers Care Voice Over Artist Name Role Phone Blaise Porter MD Primary Care Provider [phone] Allergies Active Allergy Reactions Criticality Noted Date [...] 1 tablet by mouth as needed. Active [place]-3 Fatty Acids-Vitamin E (FISH OIL) 1,000 mg [...] of 2) 2006 Bone Density Screening 2021 Advance Directive Discussion 04/25/2024 Covid-19 Vaccine (1 - 2024- season) 2024 Influenza Vaccine (#1) 2024 RSV Vaccine (1 - 1-dose 75+ series) 2031 Insurance BLUE CARD PPO OOS Care Teams Voice Over Artist Relationship Specialty Start Date End Date Blaise Porter MD PCP - General Family Medicine 01/29/15
--- OUTSIDE RECORDS SUMMARY | 2025-02-11 08:07 | XMS_ITS | Encounter Summary ---
Author Organization [facility] Address [address] [place] [address] Care Team Providers Care Cable Layer Name Role Phone Blaise Porter MD Primary Care Provider [phone] Source Comments In the event this information is protected by the Federal Confidentiality of Alcohol and Drug AbusePatient Records regulations: The Federal rules restrict any use of the information to criminally investigate or prosecute any alcohol or drug abuse patient.[facility] Encounter Details Date Type Department Care Team (Late st Contact Info) Description 2021 [place] [address] Provider, [facility] Medicare Coverage of Physical Exams [...] on filedocumented in this encounter Care Teams Cable Layer Relationship Specialty Start Date End Date Blaise Porter MD PCP - General Family Medicine 01/29/15 documented as of this encounter
--- OUTSIDE RECORDS SUMMARY | 2025-02-11 08:07 | XMS_ITS | Patient Health Record ---
Author Organization [facility] [place] Address [address] [place] [address] Care Team Providers Care Numerical Control Lathe Operator Name Role Phone Compa Pierce Primary Care Provider COMPA PIERCELAS Unavailable [phone] Allergies Allergen (clinical drug ingredient) Drug/Non Drug Allergy documented on EMR Reaction Allergy Type Onset Date Status sulfamethoxazole / trimethoprim Bactrim rash Drug Allergy Active codeine Codeine nightmare Drug Allergy Active Results Component Value Reference Range Notes CBC AUTO DIFF Reviewed date:09/27/2024 08:36:27 PM Interpretation: Performing Lab: Notes/Report: [facility] , White Blood Count 6.2 4.0-11.0 10 3/uL Red Blood Count 4.89 4.20-5.40 10 6/uL Hemoglobin 13.3 12.0-16.0 g/dL Hematocrit 41.5 36.0-48.0 % Mean Corpuscular Volume 84.9 81.0-99.0 fL Mean Corpuscular Hemoglobin 27.2 26.7-34.0 pg Mean Corpuscular HGB Conc 32.0 29.9-35.2 g/dL Red Cell Distribution Width 14.6 11.0-15.0 % Platelet Count 337 150-450 10 3/uL Mean Platelet Volume 9.4 9.5-13.5 fL Neutrophils Percent Auto 69.2 43.0-75.0 % Lymphocytes Percent Auto 22.4 20.5-60.0 % Monocytes Percent Auto 6.1 1.7-12.0 % Eosinophils Percent Auto 0.6 0.9-7.0 % Basophils Percent Auto 1.1 0.2-2.0 % Immature Granulocytes Pct Auto 0.6 0.0-0.5 % Neutrophils Absolute Auto 4.3 1.4-6.5 10 3/uL Lymphocytes Absolute Auto 1.4 1.2-3.8 10 3/uL Monocytes Absolute Auto 0.4 0.3-0.8 10 3/uL Eosinophils Absolute Auto 0.0 0.0-0.7 10 3/uL Basophils Absolute Auto 0.1 0.0-0.1 10 3/uL Immature Granulocytes Abs Auto 0.04 0.00-0.03 10 3/uL Performing Lab: see note ML - [facility] LB MM screening mammo BI Reviewed date:09/25/2024 04:37:57 PM Interpretation: Performing Lab: Notes/Report: Source Facility: [facility] [place] [address] [place] [address] Mammography Report Signed Patient: DAWNA LUCAS MR#: [id number] : 1955 Acct:[id number] Age/Sex: 69 / F ADM Date: 09/25/24 Loc: MAMMO Attending Dr: Mandie Pierce M.D. Ordering Physician: Mandie Pierce M.D. Results: Date of Service: 09/25/24 Follow Up: Procedure(s): MM screening mammo BI Accession Number(s): [id number] cc: Mandie Pierce M.D. Patient Name: DAWNA LUCAS MR#: [id number] : 1955 Exam Date: 09/25/2024 Ordering Doctor: DR MANDIE PIERCE . RADIOLOGY REPORT PROCEDURE: MM SCREENING MAMMO BI COMPARISON: MM SCREENING BI, 09/16/2023. MG MAMM SCREEN 3D PABLITO CAD, 09/13/2022. MG MAMM SCREEN PABLITO W CAD, 09/07/2021. MG MAMM PABLITO SCRN W CAD DIG, 07/03/2013. INDICATIONS: Screening Calculator Name NCI Breast Cancer Risk Assessment Tool 5 Year Breast Cancer Risk 3.20% Lifetime Breast Cancer Risk 10.10% Personal Breast Cancer No Personal Ovarian Cancer No Treatments None Family Cancers Mother with breast cancer at age 72. LOCATION: [facility] BREAST COMPOSITION: There are scattered areas of fibroglandular density. FINDINGS: RIGHT BREAST: No significant suspicious finding. Benign-appearing lymph nodes are noted along the chest wall. Benign-appearing calcifications are redemonstrated. LEFT BREAST: No significant suspicious finding. Benign-appearing lymph nodes are noted along the chest wall. Benign-appearing calcifications are present. DIAGNOSTIC CATEGORY 2--BENIGN FINDING: RECOMMENDATIONS: ROUTINE MAMMOGRAM AND CLINICAL EVALUATION IN 12 MONTHS. PLEASE NOTE: A NORMAL MAMMOGRAM DOES NOT EXCLUDE THE POSSIBILITY OF BREAST CANCER. A CLINICALLY SUSPICIOUS PALPABLE LUMP SHOULD BE BIOPSIED. Dictated by: Aakash Velasquez MD on 09/25/2024 at 11:37 Approved by: Aakash Velasquez MD on 09/25/2024 at 11:41 Dictated By: Aakash Velasquez M.D. Signed By: 09/25/24 1142 DD/ 1141 TD/TT: Softlines Supervisor: XR cervical spine 2-3V Reviewed date:09/27/2024 08:36:27 PM Interpretation: Performing Lab: Notes/Report: Source Facility: [place] [address] XRay Report Signed Patient: DAWNA LUCAS MR#: [id number] : 1955 Acct:[id number] Age/Sex: 69 / F ADM Date: 09/27/24 Loc: LAB Attending Dr: Mandie Pierce M.D. Ordering Physician: Mandie Pierce M.D. Date of Service: 09/27/24 Procedure(s): XR cervical spine 2-3V Accession Number(s): [id number] cc: Mandie Pierce M.D. [place] [id number] Patient Name: DAWNA LUCAS MRN: [id number] date: 1955 Sex: F Assigned Patient Location: LAB Current Patient Location: LAB Accession/Order Number: [id number] Exam Date: 09/27/2024 12:13 Report Date: 09/27/2024 12:16 At the request of: MANDIE PIERCE MD Procedure: XR cervical spine 2-3V CERVICAL SPINE - 3 views: CLINICAL HISTORY: Cervical Radiculopathy COMPARISON: None AP, lateral and attempted odontoid views were obtained. There is osteopenia. There is straightening of the normal cervical lordosis. No acute compression fractures are seen. There is minor retrolisthesis of C3 on C4 anterolisthesis of C4 on C5. The disc spaces are uniform. There appears to be multilevel ankylosis of the facets. The atlantoaxial relationship is maintained and there is mild spurring at the lateral masses. There is no prevertebral soft tissue swelling. XR/XR cervical spine 2-3V IMPRESSION: STRAIGHTENING OF THE NORMAL CERVICAL CURVATURE. OSTEOPENIA AND MULTILEVEL FACET DISEASE. Impression dictated by: Claire Webster M.D. 09/27/2024 12:16 PM Dictation Location: [place] [address] Electronically authenticated by: [id number] Y Date: 09/27/2024 12:16 Dictated By: Claire Webster M.D. Signed By: 09/27/24 1218 DD/ 1216 TD/TT: Softlines Supervisor: Ken JHA HPV,Age Gdln Reviewed date:11/08/2024 06:55:14 PM Interpretation: Performing Lab: Notes/Report: SPATULA-ALONE CERVIX ENDOCERVIX [facility] , Age Gdln ACOG Testing Note . Age Algo ACOG Kristin... Note 01 <-Panic Low,>-Panic High,A-Abnormal,AA-Critical Abnormal ------ 01 =[facility] [place] No. of containers..01 ThinPrep Vial ------ <21 or >65 or no age provided Performed at: Roxie Sam MD, ------ [address] [place] [id number] TESTS RESULT FLAG UNITS REF RANGE LAB FLAG LEGEND: L-Low Normal,H-High Normal,LL-Alert Low,HH-Alert High Clinician Provided Cytology Information Source.............Cervix;E ndocervix Pap IG (Image Guided) Note . TESTS RESULT FLAG UNITS REF RANGE LAB CELLULAR CHANGES ASSOCIATED WITH ATROPHY ARE PRESENT. <-Panic Low,>-Panic High,A-Abnormal,AA-Critical Abnormal distinguished in cases of atrophy. Satisfactory for evaluation. Endocervical component may not be occur. The Pap smear is a screening test designed to aid in the ------ Performed at: =[facility] This liquid based ThinPrep(R) pap test was screened with should not be used as the sole means of detecting cervical uterine cervix. It is not a diagnostic procedure and Roxie Sam MD, ------ Call Center Associate: Roxie Sam MD, Phone: [phone] [address] [place], [place] [address] [facility] [phone] [address] [place], [place] [address] [address] ------ Test Methodology: Note 02 Performed by: 02 Camila Polo, Cafeteria Assistant (ASCP) cancer. Both false-positive and false-negative reports do 02 WB [facility] Performed at: Performed at: WB - [facility] NEGATIVE FOR INTRAEPITHELIAL LESION OR MALIGNANCY. DIAGNOSIS: 02 Call Center Associate: Roxie Sam MD, Phone: [phone] L-Low Normal,H-High Normal,LL-Alert Low,HH-Alert High the use of an image guided system. Note: Note 02 [address] [place] [phone] FLAG LEGEND: Specimen adequacy: 02 . detection of premalignant and malignant conditions of the Performing Lab: see note LC - [facility] LB MR cervical spine wo con Reviewed date:10/02/2024 04:39:06 PM Interpretation: Performing Lab: Notes/Report: Source Facility: [place] [address] Magnetic Resonance Report Signed Patient: DAWNA LUCAS MR#: [id number] : 1955 Acct:[id number] Age/Sex: 69 / F ADM Date: 10/02/24 Loc: MRI Attending Dr: Mandie Pierce M.D. Ordering Physician: Mandie Pierce M.D. Date of Service: 10/02/24 Procedure(s): MR cervical spine wo con Accession Number(s): [id number] cc: Mandie Pierce M.D. [place] [address] Patient Name: DAWNA LUCAS MRN: [id number] date: 1955 Sex: F Assigned Patient Location: MRI Current Patient Location: MRI Accession/Order Number: [id number] Exam Date: 10/02/2024 10:22 Report Date: 10/02/2024 10:34 At the request of: MANDIE PIERCE MD Procedure: MR cervical spine wo con EXAMINATION: MRI OF THE CERVICAL SPINE WITHOUT CONTRAST CLINICAL DATA: Chronic neck pain with radiculopathy and decreased range of motion. No reported injury. COMPARISON: Plain films 09/27/2024 TECHNIQUE: Multiecho imaging was performed in the sagittal and axial plane without contrast administration. FINDINGS: Alignment is maintained on the sagittal images. No acute compressions or marrow edema are seen. There is a hemangioma at C7. There is a normal cervicomedullary junction. The cord is normal in caliber and signal intensity throughout its imaged course. At C2-C3, there is no disc disease or stenosis. At C3-4, there is mild disco-osteophytic bulging centrally with mild associated thecal sac effacement. There is no foraminal narrowing. At C4-5, there is minor disco-osteophytic bulging with minimal thecal sac effacement. There is slight asymmetric facet hypertrophy on the left where mild associated foraminal encroachment is seen. At C5-6, there is mild central disco-osteophytic bulging with mild associated thecal sac effacement. There is no neural foraminal narrowing. At C6-7, there is no disc disease or stenosis. No MRI abnormalities are identified at the cervicothoracic junction. MR/MR cervical spine wo con IMPRESSION: STRAIGHTENING OF THE NORMAL CERVICAL LORDOSIS. MINOR DISCOVERTEBRAL DEGENERATIVE CHANGE, WITHOUT SIGNIFICANT ASSOCIATED STENOSIS. Impression dictated by: Claire Webster M.D. 10/02/2024 10:34 AM Dictation Location: [place] [address] Electronically authenticated by: [id number] Y Date: 10/02/2024 10:34 Dictated By: Claire Webster M.D. Signed By: 10/02/24 1036 DD/ 1034 TD/TT: Softlines Supervisor: TSH Reviewed date:09/27/2024 08:36:27 PM Interpretation: Performing Lab: Notes/Report: [facility] , Thyroid Stimulating Hormone 2.034 0.358-3.740 u IU/mL Performing Lab: see note ML - [facility] LB T4 Reviewed date:09/27/2024 08:36:27 PM Interpretation: Performing Lab: Notes/Report: [facility] , T4 Thyroxine 8.60 4.80-13.90 ug/dL Performing Lab: see note ML - [facility] LB PROF 14(COMP METB) Reviewed date:09/27/2024 08:36:27 PM Interpretation: Performing Lab: Notes/Report: [facility] , Sodium 137 136-145 mmol/L Potassium 4.3 3.5-5.1 mmol/L Chloride 99 98-107 mmol/L Carbon Dioxide 27.8 21.0-32.0 mmol/L Anion Gap 14.5 Glucose 99 74-106 mg/dL Blood Urea Nitrogen 13.0 7.0-18.0 mg/dL Creatinine 0.64 0.55-1.02 mg/dL Estimated GFR ( Susan >60 >=60 mL/min/1.73m 2 Estimated GFR (Non- Lara >60 >=60 mL/min/1.73m 2 BUN Creatinine Ratio 20.3 Calcium 9.4 8.5-10.1 mg/dL Bilirubin Total 0.3 0.2-1.0 mg/dL Aspartate Amino Transferase 23 15-37 U/L Alanine Aminotransferase 31 14-59 U/L Alkaline Phosphatase 126 46-116 U/L Total Protein 6.9 6.4-8.2 g/dL Albumin Level 3.0 3.4-5.0 g/dL Globulin 3.9 Albumin Globulin Ratio 0.8 Performing Lab: see note ML - [facility] LIPID PROFILE Reviewed date:09/27/2024 08:36:27 PM Interpretation: Performing Lab: Notes/Report: [facility] , Triglycerides 94 <=150 mg/dL Cholesterol 198 <=200 mg/dL HDL Cholesterol 68 40-60 mg/dL > or =60 mg/dl - LOW CARDIOVASCULAR RISK <40 mg/dl - HIGH CARDIOVASCULAR RISK LDL Cholesterol Calculated 112.0 160-189 mg/dl HIGH 130-159 mg/dl BORDERLINE HIGH <100 mg/dl OPTIMAL 100-129 mg/dl NEAR OR ABOVE OPTIMAL >190 mg/dl VERY HIGH VLDL CHOLESTEROL 18.8 Chol HDL Ratio 2.9 >11.0 HIGH RISK 3.3 - 4.4 LOW RISK 7.1 - 11.0 MODERATE RISK 4.4 - 7.1 AVERAGE RISK Performing Lab: see note ML - [facility] IRON Reviewed date:09/27/2024 08:36:27 PM Interpretation: Performing Lab: Notes/Report: [facility] , Iron 46.0 50.0-170.0 ug/dL Performing Lab: see note ML - [facility] LB GLYCOHEMOGLOBIN A1C Reviewed date:09/27/2024 08:36:27 PM Interpretation: Performing Lab: Notes/Report: [facility] , Glycohemoglobin A1C 5.2 4.5-6.2 % ACTION SUGGESTED > 7.0 ADA THERAPEUTIC TARGET < 7.0 ADA RECOMMENDED LIMIT 4.0 - 6.0 Estimated Average Glucose 103 Performing Lab: see note ML - [facility] LB FREE T3 Reviewed date:09/27/2024 08:36:27 PM Interpretation: Performing Lab: Notes/Report: [facility] , Free T3 2.19 2.18-3.98 pg/mL Performing Lab: see note ML - [facility] LB Reason For Referral Diagnosis 1 Ganglion cyst (M67.4 0) Referral Organization [facility] Referring Provider First Name Compa Referring Provider Last Name German Referring Provider Speciality Family [facility] joaquim Referred Provider Manish Weiss Referred Provider Specialty Orthopedic S urgery Referral Priority Routine Medications Medication SIG (Take, Route, Frequency, Duration) Notes Start Date End Date Status Calcium 600 MG 1 tablet with meals Orally Twice a day 09/22/2023 Active [place]-3 Fish Oil Act odette Omeprazole 40 MG TAKE ONE CAPSULE BY MOUTH DAILY; Duration: 90 Active Ferrous Sulfate 325 (65 Fe) MG 1 tablet Orally BID Active Meloxicam 15 MG TAKE ONE TABLET BY M OUTH DAILY; Duration: 90 Active Simvastatin 20 MG TAKE ONE TABLET BY M OUTH EVERY EVENING; Duration: 90 days Active sulfaSALAzine 500 MG TAKE 2 TABLETS BY M OUTH TWICE A DAY; Duration: 90 days Active Vitamin D 50 MCG (1999 UT) 2 capsule Ora lly Once a day Active Social History Tobacco Use: Social History Observation Description Date Details (start date - stop date) Never Smoker NA - NA Tobacco Use/Smoking Question Answer Notes Patient is a nonsmoker Alcohol Screen (Audit-C) Question Answer Notes Did you have a drink containing alcohol in the p ast year? No Points 0 Interpretation Negative AUDIT-C (Standard) Question Answer Notes Did you have a drink containing alcohol in the p ast year? No Points 0 Interpretation Negative Problems Problem Type SNOMED Code ICD Code Onset Dates Problem Status W/U Status Risk Notes Problem Fatigue (64924483) Fatigue (R53.83) Active conf irmed Problem Hyperlipidemia (83419136) Hyperlipidemia (E78.5) Active confirmed Problem Cervical radiculopat hy (27315447) Cervical radiculopathy (M54.12) Active confirmed Problem Neck pain (50554022) Neck pain (M54.2) Active confirmed Problem Osteopenia (442497564) Osteopeni a (M85.80) Active confirmed Problem Colitis (24958433) Colitis (K52.9) Active confi rmed Problem Well adult (997738031) Well adul t (Z00.00) Active confirmed Problem Spasm of back muscle s (059900969) Back muscle spasm (M62.830) Active confirmed Problem Urinary tract infection (42356282) Urinary tract infection (N39.0) Active confirmed Problem Gastric ulcer (276095264) Gastric ulcer (K25.9) Active confirmed Problem Iron deficiency anem ia (08471141) Anemia, iron deficiency (D50.9) Active confirmed Problem Gastro-esophageal reflux disease (990938719) Gastro-esophagea l reflux disease (K21.9) Active confirmed Problem Arthropathy (144700458) 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) Active confirmed Problem Pure hypercholesterolemia (306448739) Pure hypercholesterol emia, unspecified (E78.00) Active confirmed Problem Decreased estrogen level (505980575) Decreased estrogen level (E28.39) Active confirmed Problem Low back pain (861465626) Low back pain, unspecified (M54.50) Active confirmed Vital Signs Blood pressure diastolic 62 mm Hg 01/28/2025 Height 64 in 01/28/2025 Blood pressure systolic 130 mm Hg 01/28/2025 Weight 169.6 lbs 01/28/2025 BMI 29.11 kg/m2 01/28/2025 Encounters Encounter Location Date Provider Diagnosis [facility] [address] [place] [address] 01/28/2025 Compa Hoy Ganglion cyst M67.40 [facility] [address] [place] [address] 09/27/2024 Compa Hoy Back muscle spasm M62.830 ; Anemia, iron deficiency D50.9 ; Gastro-esophageal reflux disease K21.9 ; Arthritis involving multiple sites M12.9 ; Hyperlipidemia E78.5 and Cervical radiculopathy M54.12 [facility] [address] [facility] [place] [address] 09/25/2024 Compa Pierce [facility] [address] [facility] [place] [address] 09/27/2024 Compa Pierce Decreased estrogen l evel E28.39 [facility] [address] [facility] [place] [address] 09/27/2024 Compa Pierce [facility] [address] [facility] [place] [address] 10/02/2024 MANDIE PIERCE [facility] [address] [facility] [place] [address] 10/08/2024 Compa Pierce [facility] [address] [facility] [place] [address] 01/28/2025 Copma Pierce Ganglion cyst M67.40 Assessments Encounter Date Diagnosis (ICD Code) Assessment Notes Treatment Notes Treatment Clinical Notes Section Notes 01/28/2025 Ganglion cyst (ICD-10 - M67.40) 09/27/2024 Decreased estrogen level (ICD-10 - E28.39) 01/28/2025 Ganglion cyst (ICD-10 - M67.40) 09/27/2024 Back muscle spasm (ICD-10 - M62.830) 09/27/2024 Anemia, iron deficiency (ICD-10 - D50.9) 09/27/2024 Gastro-esophageal reflux disease (ICD-10 - K21.9) 09/27/2024 Arthritis involving multiple sites (ICD-10 - M12.9) 09/27/2024 Hyperlipidemia (ICD-10 - E78.5) 09/27/2024 Cervical radiculopathy (ICD-10 - M54.12) Plan Of Treatment Pending Test Test Name Order Date CMP (COMPLETE METABOLIC PANEL) 3 CMP (COMPLETE METABOLIC PANEL) 4 HEMOGLOBIN A1C (GLYCO) 09/13/2022 HEMOGLOBIN A1C (GLYCO) 09/27/2024 HEMOGLOBIN A1C (GLYCO) 09/22/2023 IRON, TOTAL 09/27/2024 IRON, TOTAL 09/13/2022 IRON, TOTAL 09/22/2023 LIPID PANEL (CHOL/TRIG/HDL/LDL) 09/22/19 24 LIPID PANEL (CHOL/TRIG/HDL/LDL) 09/14/19 23 LIPID PANEL (CHOL/TRIG/HDL/LDL) 09/28/19 25 CBC WITH DIFF 09/13/2022 CBC WITH DIFF 09/22/2023 VITAMIN D, 25 LEVEL (TOTAL) 09/22/2023 VITAMIN D, 25 LEVEL (TOTAL) 09/13/2022 Insulin Level 09/13/2022 Insulin Level 09/22/2023 LIPID PROFILE 09/13/2022 LIVER PROFILE 09/13/2022 MRI CSPINE WO CON 09/27/2024 XR ANKLE LT MIN 3 V 09/27/2024 XR DEXA BONE DENSITY 09/27/2024 THYROID PANEL (T4/TSH/FREE T3) 5 THYROID PANEL (T4/TSH/FREE T3) 4 THYROID PANEL (T4/TSH/FREE T3) 3 CMP (COMP MET LAL) w/eGFR CKD-EPI 2024 CBC WITH DIFF 09/27/2024 Insurance Providers Payer Name Payer Address Payer Phone Subscriber Number Group Number Insured Name Patient Relationship to Insured Coverage Start Date Coverage End Date [place] [address] [place] [address] [id number] Dawna Lucas Self - patient is the insured [employer] [address] [place] [address] [id number] Dawna Lucas Self - patient is the insured Medical (General) History Medical History History ICD Code Hyperlipidemia E78.5 Gastro-esophageal reflux disease K21.9 Gastric ulcer K25.9 Arthritis involving multiple sites M12.9 Anemia, iron deficiency D50.9 Well adult Z00.00 Low back pain, unspecified M54.50 Neck pain M54.2 Urinary tract infection N39.0 Fatigue R53.83 Back muscle spasm M62.830 Surgical History Surgery Date(Month/Year) x3 Rt ankle fracture with surgical repair
--- OUTSIDE RECORDS SUMMARY | 2025-02-11 08:07 | XMS_ITS | Encounter Summary ---
Author Organization [facility] Address [facility] [place] [address] Care Team Providers Care Store Custodian Name Role Phone Blaise Porter MD Primary Care Provider [phone] Source Comments In the event this information is protected by the Federal Confidentiality of Alcohol and Drug AbusePatient Records regulations: The Federal rules restrict any use of the information to criminally investigate or prosecute any alcohol or drug abuse patient.[facility] Encounter Details Date Type Department Care Team (Late st Contact Info) Description 05/12/2015 Patient Msg Hematology/Oncology [address] [place] [address] Evaristo Cortes MD [address] [place] [address] RE: Appointment Cancellation Request Social History Tobacco Use Types Packs/Day Years [...] on filedocumented in this encounter Care Teams Store Custodian Relationship Specialty Start Date End Date Blaise Porter MD PCP - General Family Medicine 01/29/15 documented as of this encounter
--- OUTSIDE RECORDS SUMMARY | 2025-02-11 08:08 | XMS_ITS | Encounter Summary ---
Author Organization [facility] Address [address] [facility] [place] [address] Care Team Providers Care Web Application Dev Specialist Name Role Phone Unavailable Primary Care Provider Unavailabl e Encounter Details Date Type Department Care Team (Late st Contact Info) Description 11/13/2024 Orders Only [facility] [address] [place] [address] Sondra Cuello LPN [address] [place] [id number] Social History Tobacco Use Types Packs/Day Years Used Date Smoking Tobacco: Never Assessed Comments No Sex and Gender Information Value Date Recorded Sex Assigned at Not on file Legal Sex Female 6:39 PM EDT Gender Identity Not on file Sexual Orientation Not on file documented as of this encounter Plan of Treatment Not on file documented as of this encounter Procedures Procedure Name Priority Date/Time Associated Diagnosis Comments PAP SMEAR Routine 11/05/2024 12:00 AM EDT documented in this encounter Results * Pap Smear (11/05/2024 12:00 AM EDT) Swab Cervical swab / Unknown us Tracey Nurse [facility] CYTOLOGY ORDERABLES Final Result EXTERNAL LAB documented in this encounter Visit Diagnoses Not on filedocumented in this encounter
--- OUTSIDE RECORDS SUMMARY | 2025-02-11 08:08 | XMS_ITS | Clinical Summary ---
Author Organization [facility] Healthcare Address [address] [place] [address] Care Team Providers Care Circular Saw Edge Fuser Name Role Phone Unavailable Primary Care Provider Unavailabl e Allergies Active Allergy Reactions Criticality Noted Date Comments Sulfamethoxazole-Trimethoprim 2024 Medications calcium carbonate (Os-Perfecto) 1250 (500 Ca) MG tablet every 12 (twelve) hours Active meloxicam (Mobic) 15 MG tablet 1 (one) time each day at the same time Active omeprazole (PriLOSEC) [address] capsule 1 capsule 1 (one) time each day at the same time Active sulfaSALAzine (Azulfidine) 500 MG tablet Take 1,000 mg by mouth in the morning and 1,000 mg before bedtime. 6 Active Ferrous Fumarate 325 (106 Fe) MG tablet Take 1 tablet by mouth in the morning and 1 tablet before bedtime. Active OMEGA 3-6-9 FATTY ACIDS PO Take 1 each by mouth Daily Active diphenhydrAMINE (BENADryl) 50 MG tablet Take 50 mg by mouth as needed at bedtime for sleep Active simvastatin (Zocor) 20 MG tablet Take 20 mg by mouth at bedtime 5 Active cholecalciferol (Vitamin D-3) 50 MCG (2000 UT) capsule Take 2,000 Units by mouth in the morning and 2,000 Units before bedtime. Active estradiol (Estrace) 0.1 MG/GM vaginal creamIndication s:Vaginal itching,Hot flashes due to menopause INSERT 2 GRAMS VAGINALLY DAILY FOR 2 WEEKS, THEN 2 TIMES WEEKLY FOLLOWING INITIAL 2 WEEKS. 42.5 g 3 08/14/202 5 Active Encounters Date Type Department Care Team Description 12/12/2024 Telephone [facility] [address] [place] [address] Amy Pardo MA 12/10/2024 10:30 AM EDT Office Visit [facility] [address] [place] [address] Gale Larkin PA Vaginal itching (Primary Dx) 12/10/2024 Telephone [facility] [address] [place] [address] Amy Pardo MA 12/10/2024 Bamboo flowsheet [facility] [address] [place] [address] Gale Larkin PA 12/03/2024 Travel 12/03/2024 Refill [facility] [address] [place] [address] Gale Larkin PA Vaginal itching; Hot flashes due to menopause 11/13/2024 Orders Only [facility] [address] [place] [address] Sondra Cuello LPN from Last 3 Months Family History Medical History Relation Name Comments Breast cancer Mother estrogen prototype carpenter tive Relation Name Status Comments Mother Social History Tobacco Use Types Packs/Day Years Used Date Smoking Tobacco: Never Assessed Comments No Sex and Gender Information Value Date Recorded Sex Assigned at Not on file Legal Sex Female 6:39 PM EDT Gender Identity Not on file Sexual Orientation Not on file Last Filed Vital Signs Vital Sign Reading Time Taken Comments Blood Pressure 132/80 11/05/2024 1:26 PM EDT Pulse - - Temperature - - Respiratory Rate - - Oxygen Saturation - - Inhaled Oxygen Concentration - - Weight 77.1 kg (170 lb) 11/05/2024 1:26 PM EDT Height 157.5 cm (5' 2 ) 11/05/2024 1:26 PM EDT Body Mass Index 31.09 11/05/2024 1:26 PM EDT Plan of Treatment Health Maintenance Due Date Last Done Comments CT Colonography 1956 Colonoscopy 1956 Colorectal Cancer Screening 1956 FIT-DNA 1956 FIT 1956 FOBT 1956 Sigmoidoscopy 1956 Mammogram 1996 Influenza Vaccine (#1) 2024 , 01/26/2023, 01/26/2022, Additional history exists Pneumococcal Vaccine: 65+ Ye ars (3 of 3 - PCV20 or PCV21) 04/09/2026 04/09/2021, 11/24/2018 Insurance MEDICARE [facility]
--- OUTSIDE RECORDS SUMMARY | 2025-02-11 08:09 | XMS_ITS | CCD ---
Author Organization [facility] Care Team Providers Care Associate Financial Analyst Name Role Phone FRANCIS CALVILLO Admitting Unavailable KARI, DR LOCKWOOD Primary Care Unavailable FRANCIS CALVILLO Attending Unavailable FRANCIS CALVILLO Consulting Unavailable KARI, DR LOCKWOOD Primary Care Unavailable KARI, DR LOCKWOOD Admitting Unavailable KARI, DR LOCKWOOD Attending Unavailable KARI, DR LOCKWOOD Consulting Unavailable KARI, DR LOCKWOOD Admitting Unavailable KARI, DR LOCKWOOD Attending Unavailable WEST, DR LUTHER Soares Consulting Unavailable KARI, DR LOCKWOOD Primary Care Unavailable Unavailable Primary Care Provider UnavailGALE Avery Attending Unavailable GALE FORREST Attending Unavailable Allergies Allergy Classification Reported Allergen(s) Allergy Type Date of Onset Reaction(s) Facility (1 source) Codeine Drug Allergy 5 [facility] (1 source) Sulfonamides (Antibiotic) Drug allergy (disorder) 5 [facility] (6 sources) Sulfamethoxazole / Trimethoprim Drug Allergy 5 [facility] Medications Current Medications Medication Drug Class(es) Dates [...] Discontinued calcium carbonate 500 mg oral tablet (7 sources) calcium carbonat e (Os-Perfecto) 1250 (500 Ca) MG tablet every 12 (twelve) hours Active cholecalciferol 0.05 mg oral capsule (6 sources) Vitamin D take 1 capsule by mouth in the morning cholecalciferol (Vitamin D-3) 50 MCG (2000 UT) capsule Take 2,000 Units by mouth in the morning and 2,000 Units before bedtime. Active diphenhydrAMINE hydrochloride 50 mg oral tablet (6 sources) Histamine-1 Receptor Antagonist diphenhydrAMINE (BENADryl) 50 MG tablet Take 50 mg by mouth as needed at bedtime for sleep Active estradiol 0.1 mg/ml vaginal cream (6 sources) Estrogen Start: 12-06-2024 estradiol (Estrace) 0.1 MG/GM vaginal cream Indications: Vaginal itching , Hot flashes due to menopause INSERT 2 GRAMS VAGINALLY DAILY FOR 2 WEEKS, THEN 2 TIMES WEEKLY FOLLOWING INITIAL 2 WEEKS. 42.5 g 3 12/06/2024 Active Start: 11-05-2024 estradiol (Est race) 0.1 MG/GM vaginal cream Indications: Vaginal itching , Hot flashes due to menopause 2g vaginal daily for 2 weeks, then 2 times weekly following initial 2 weeks 42.5 g 11/05/2024 Active ferrous fumarate 325 mg oral tablet (6 sources) take 1 tablet by mouth in the morning Ferrous Fumarate 325 (106 Fe) MG tablet Take 1 tablet by mouth in the morning and 1 tablet before bedtime. Active meloxicam 15 mg oral tablet (7 sources) Nonsteroidal Anti-inflammatory Drug meloxicam (Mobic) 15 MG tablet 1 (one) time each day at the same time Active OMEGA 3-6-9 FATTY ACIDS PO (6 sources) take 1 dose by mouth once daily OMEGA 3-6-9 FATTY ACIDS PO Take 1 each by mouth Daily Active omeprazole 20 mg delayed release oral capsule (7 sources) Proton Pump Inhibitor omeprazole (PriLOSEC) [address] capsule 1 capsule 1 (one) time each day at the same time Active simvastatin 20 mg oral tablet (6 sources) HMG-CoA Reductase Inhibitor Start: 025 take 1 tablet by mouth at bedtime simvastatin (Zocor) 20 MG tablet Take 20 mg by mouth at bedtime 11/02/2024 Active sulfaSALAzine 500 mg oral tablet (6 sources) Aminosalicylate Start: 016 take 2 tablets [...] states] 11-05-2024 Chronic Other female genital disorders (4 sources) Pruritus of vagina; Translations: [Other specified [...] Test Name Value Interpretation Reference Range Facility IGP,APTIMA HPV,AGE GDLNon AGE GDLN ACOG TESTING Note . [facility] Comment on above: TESTS RESULT FLAG UN ITS REF RANGE LAB Clinician Provided Cytology Information Source.............Cervix;Endocervix No. of containers..01 ThinPrep Vial Age Algo ACOG Kristin... Note 01 <21 or >65 or no age provided FLAG LEGEND: L-Low Normal,H-High Normal,LL-Alert Low,HH-Alert High <-Panic Low,>-Panic High,A-Abnormal,AA-Critical Abnormal Performed at: 01 =G [facility] [place] [address] [facility] [place] [address] Roxie Sam MD, PAP IG (IMAGE GUIDED) Note . [facility] Comment on above: TESTS RESULT FLAG UN ITS REF RANGE LAB DIAGNOSIS: 02 NEGATIVE FOR INTRAEPITHELIAL LESION OR MALIGNANCY. CELLULAR CHANGES ASSOCIATED WITH ATROPHY ARE PRESENT. Specimen adequacy: 02 Satisfactory for evaluation. Endocervical component may not be distinguished in cases of atrophy. Performed by: Swati Polo, Fur Tailor ([facility]) . 02 Note: Note 02 The Pap smear is a screening test designed to aid in the detection of premalignant and malignant conditions of the uterine cervix. It is not a diagnostic procedure and should not be used as the sole means of detecting cervical cancer. Both false-positive and false-negative reports do occur. Test Methodology: Note 02 This liquid based ThinPrep(R) pap test was screened with the use of an image guided system. FLAG LEGEND: L-Low Normal,H-High Normal,LL-Alert Low,HH-Alert High <-Panic Low,>-Panic High,A-Abnormal,AA-Critical Abnormal Performed at: 02 WB [facility] [address] [id number] Roxie Sam MD, Performed at: =G - [facility] [address], [place] [id number] Information Security Specialist: Roxie Sam MD, Phone: [phone] Performed at: WB - [facility] [address] [id number] Information Security Specialist: Roxie Sam MD, Phone: [phone] SPATULA-ALONE CERVIX ENDOCERVIX [facility] CBC AUTO DIFFon 09-10-2021 BASO # 0.0 103/ul Normal 0.0-0.1 [facility] Comment on above: Performed By: #### C BC #### [facility] [address] [place] [address] Dr. Scott Mukherjee Basophils/100 WBC (Bld) 0.7 % Normal 0.2-2.0 [facility] Comment on above: Performed By: #### C BC #### [facility] [address] [place] [address] Dr. Scott Mukherjee EO # 0.0 103/ul Normal 0.0-0.7 [facility] Comment on above: Performed By: #### C BC #### [facility] [address] [place] [address] Dr. Scott Mukherjee Eosinophils/100 WBC (Bld) 0.7 % Critically low 0.9-7.0 [facility] Comment on above: Performed By: #### C BC #### [facility] [address] [place] [address] Dr. Scott Mukherjee Erythrocyte distribution width (RBC) [Ratio] 14.5 % Normal 11.0-15.0 [facility] Comment on above: Performed By: #### C BC #### [facility] [address] [place] [address] Dr. Scott Mukherjee Hematocrit (Bld) [Volume fraction] 40.9 % Normal 36.0-48.0 [facility] Comment on above: Performed By: #### C BC #### [facility] [address] [place] [address] Dr. Scott Mukherjee Hemoglobin (Bld) [Mass/Vol] 12.4 g/dL Normal 12.0-16.0 [facility] Comment on above: Performed By: #### C BC #### [facility] [address] [place] [address] Dr. Scott Mukherjee IG # 0.03 10e3/ul Normal 0.00-0.03 [facility] Comment on above: Performed By: #### C BC #### [facility] [address] [place] [address] Dr. Scott Mukherjee IG % 0.5 % Normal 0.0-0.5 [facility] Comment on above: Performed By: #### C BC #### [facility] [address] [place] [address] Dr. Scott Mukherjee LYMPH # 1.3 103/ul Normal 1.2-3.8 [facility] Comment on above: Performed By: #### C BC #### [facility] [address] [place] [address] Dr. Scott Mukherjee Lymphocytes/100 WBC (Bld) 21.0 % Normal 20.5-60.0 [facility] Comment on above: Performed By: #### C BC #### [facility] [address] [place] [address] Dr. Scott Mukherjee MANUAL DIFF REQ NO Normal [facility] Comment on above: Performed By: #### C BC #### [facility] [address] [place] [address] Dr. Scott Mukherjee MCH (RBC) [Entitic mass] 26.7 pg Normal 26.7-34.0 [facility] Comment on above: Performed By: #### C BC #### [facility] [address] [place] [address] Dr. Scott Mukherjee MCHC (RBC) [Mass/Vol] 30.3 g/dL Normal 29.9-35.2 [facility] Comment on above: Performed By: #### C BC #### [facility] [address] [place] [address] Dr. Scott Mukherjee MCV (RBC) [Entitic vol] 88.1 fL Normal 81.0-99.0 [facility] Comment on above: Performed By: #### C BC #### [facility] [address] [address] [address] Scott Mukherjee MONO # 0.4 103/ul Normal 0.3-0.8 [facility] Comment on above: Performed By: #### C BC #### [facility] [address] [place] [address] Dr. Scott Mukherjee Monocytes/100 WBC (Bld) 6.4 % Normal 1.7-12.0 [facility] Comment on above: Performed By: #### C BC #### [facility] [address] [place] [address] Dr. Scott Mukherjee NEUT # 4.3 103/ul Normal 1.4-6.5 [facility] Comment on above: Performed By: #### C BC #### [facility] [address] [place] [address] Dr. Scott Mukherjee Neutrophils/100 WBC (Bld) 70.7 % Normal 43.0-75.0 [facility] Comment on above: Performed By: #### C BC #### [facility] [address] [place] [address] Dr. Scott Mukherjee Platelet mean volume (Bld) [Entitic vol] 9.7 fL Normal 9.5-13.5 [facility] Comment on above: Performed By: #### C BC #### [facility] [address] [place] [address] Dr. Scott Mukherjee PLT 387 103/ul Normal 150-450 [facility] Comment on above: Performed By: #### C BC #### [facility] [address] [place] [address] Dr. Scott Mukherjee RBC 4.64 106/ul Normal 4.20-5.40 [facility] Comment on above: Performed By: #### C BC #### [facility] [address] [address] [address] Scott Mukherjee WBC 6.1 103/ul Normal 4.0-11.0 [facility] Comment on above: Performed By: #### C BC #### [facility] [address] [place] [address] Dr. Scott Mukherjee FREE THYROXINE INDEX T7on FTI 3.49 Normal 1.30-4.50 [facility] Comment on above: Performed By: #### T 7, LIPID, TSH, CMP #### [facility] [address] [place] [address] Dr. Scott Mukherjee T3U 32.0 % Normal 30.0-39.0 [facility] Comment on above: Performed By: #### T 7, LIPID, TSH, CMP #### [facility] [address] [place] [address] Dr. Scott Mukherjee T4 [Mass/Vol] 10.90 ug/dL Normal 4.80-13.90 [facility] Comment on above: Performed By: #### T 7, LIPID, TSH, CMP #### [facility] [address] [place] [address] Dr. Scott Mukherjee GLYCOHEMOGLOBIN A1Con 2021 ADA RECOMMENDATION SEE BELOW Normal [facility] Comment on above: Result Comment: ADA RECOMMENDED LIMIT 4.0 - 6.0 ADA THERAPEUTIC TARGET < 7.0 ACTION SUGGESTED > 7.0 Performed By: #### A 1C #### [facility] [address] [place] [address] Dr. Scott Mukherjee Glucose [Mass/Vol] 91 mg/dL Normal [facility] Comment on above: Performed By: #### A 1C #### [facility] [address] [place] [address] Dr. Scott Mukherjee HbA1c (Bld) [Mass fraction] 4.8 % Normal 4.5-6.2 [facility] Comment on above: Performed By: #### A 1C #### [facility] [address] [address] [address] Scott Mukherjee IRONon 09-10-2021 Iron [Mass/Vol] 52.0 ug/dL Normal 50.0-170.0 [facility] Comment on above: Performed By: #### I CLAYTON #### [facility] [address] [address] [address] Scott Mukherjee LIPID PROFILEon 09-10-2021 CHOL-HDL RATIO NORM SEE BELOW Normal [facility] Comment on above: Result Comment: 3.3 - 4.4 LOW RISK 4.4 - 7.1 AVERAGE RISK 7.1 - 11.0 MODERATE RISK >11.0 HIGH RISK Performed By: #### T 7, LIPID, TSH, CMP #### [facility] [address] [place] [address] Dr. Scott Mukherjee Cholesterol [Mass/Vol] 220 mg/dL Critically high <=200 [facility] Comment on above: Performed By: #### T 7, LIPID, TSH, CMP #### [facility] [address] [address] [address] Scott Mukherjee Cholesterol in HDL [Mass/Vol] 61 mg/dL Critically high 40-60 [facility] Comment on above: Performed By: #### T 7, LIPID, TSH, CMP #### [facility] [address] [place] [address] Dr. Scott Mukherjee Cholesterol in LDL [Mass/Vol] 137.2 mg/dL Normal [facility] Comment on above: Performed By: #### T 7, LIPID, TSH, CMP #### [facility] [address] [place] [address] Dr. Scott Mukherjee Cholesterol.total/Ch olesterol in HDL [Mass ratio] 3.6 {ratio} Normal [facility] Comment on above: Performed By: #### T 7, LIPID, TSH, CMP #### [facility] [address] [place] [address] Dr. Scott Mukherjee HDL NORMAL > or = 60 mg/dl - LO W CARDIOVASCULAR RISK <40 mg/dl - HIGH CARDIOVASCULAR RISK Normal [facility] Comment on above: Performed By: #### T 7, LIPID, TSH, CMP #### [facility] [address] [address] [address] Scott Mukherjee LDL CALC NORMAL SEE BELOW Normal [facility] Comment on above: Result Comment: <100 mg/dl OPTIMAL 100 - 129 mg/dl NEAR OR ABOVE OPTIMAL 130 - 159 mg/dl BORDERLINE HIGH 160 - 189 mg/dl HIGH >190 mg/dl VERY HIGH Performed By: #### T 7, LIPID, TSH, CMP #### [facility] [address] [address] [address] Scott Mukherjee Triglyceride [Mass/Vol] 109 mg/dL Normal <=150 [facility] Comment on above: Performed By: #### T 7, LIPID, TSH, CMP #### [facility] [address] [address] [address] Scott Mukherjee VLDL CALC 21.8 mg/dL Normal [facility] Comment on above: Performed By: #### T 7, LIPID, TSH, CMP #### [facility] [address] [address] [address] Scott Mukherjee PROF 14(COMP METB)on 022 Albumin [Mass/Vol] 2.6 g/dL Critically low 3.4-5.0 [facility] Comment on above: Performed By: #### T 7, LIPID, TSH, CMP #### [facility] [address] [address] [address] Scott Mukherjee Albumin/Globulin [Mass ratio] 0.7 {ratio} Normal [facility] Comment on above: Performed By: #### T 7, LIPID, TSH, CMP #### [facility] [address] [address] [address] Scott Mukherjee ALP [Catalytic activity/Vol] 109 U/L Normal 46-116 [facility] Comment on above: Performed By: #### T 7, LIPID, TSH, CMP #### [facility] [address] [address] [address] Scott Mukherjee ALT [Catalytic activity/Vol] 25 U/L Normal 14-59 [facility] Comment on above: Performed By: #### T 7, LIPID, TSH, CMP #### [facility] [address] [address] [address] Scott Mukherjee Anion gap [Moles/Vol] 11.7 mmol/L Normal [facility] Comment on above: Performed By: #### T 7, LIPID, TSH, CMP #### [facility] [address] [address] [address] Scott Mukherjee AST [Catalytic activity/Vol] 18 U/L Normal 15-37 [facility] Comment on above: Performed By: #### T 7, LIPID, TSH, CMP #### [facility] [address] [address] [address] Scott Mukherjee Bilirubin [Mass/Vol] 0.2 mg/dL Normal 0.2-1.0 [facility] Comment on above: Performed By: #### T 7, LIPID, TSH, CMP #### [facility] [address] [place] [address] Dr. Scott Mukherjee Calcium [Mass/Vol] 9.0 mg/dL Normal 8.5-10.1 [facility] Comment on above: Performed By: #### T 7, LIPID, TSH, CMP #### [facility] [address] [address] [address] Scott Mukherjee Chloride [Moles/Vol] 103 mmol/L Normal 98-107 [facility] Comment on above: Performed By: #### T 7, LIPID, TSH, CMP #### [facility] [address] [address] [address] Scott Mukherjee CO2 [Moles/Vol] 27.8 mmol/L Normal 21.0-32.0 [facility] Comment on above: Performed By: #### T 7, LIPID, TSH, CMP #### [facility] [address] [address] [address] Scott Mukherjee Creatinine [Mass/Vol] 0.68 mg/dL Normal 0.55-1.02 [facility] Comment on above: Performed By: #### T 7, LIPID, TSH, CMP #### [facility] [address] [address] [address] Scott Mukherjee EGFR-AF NIUEAN >60 Normal >=60 [facility] Comment on above: Performed By: #### T 7, LIPID, TSH, CMP #### [facility] [address] [place] [address] Dr. Scott Mukherjee EGFR-NON AF NIUEAN >60 Normal >=60 [facility] Comment on above: Performed By: #### T 7, LIPID, TSH, CMP #### [facility] [address] [place] [address] Dr. Scott Mukherjee Globulin (S) [Mass/Vol] 3.9 g/dL Normal [facility] Comment on above: Performed By: #### T 7, LIPID, TSH, CMP #### [facility] [address] [place] [address] Dr. Scott Mukherjee Glucose [Mass/Vol] 98 mg/dL Normal 74-106 [facility] Comment on above: Performed By: #### T 7, LIPID, TSH, CMP #### [facility] [address] [place] [address] Dr. Scott Mukherjee Potassium [Moles/Vol] 4.5 mmol/L Normal 3.5-5.1 [facility] Comment on above: Performed By: #### T 7, LIPID, TSH, CMP #### [facility] [address] [place] [address] Dr. Scott Mukherjee Protein [Mass/Vol] 6.5 g/dL Normal 6.4-8.2 [facility] Comment on above: Performed By: #### T 7, LIPID, TSH, CMP #### [facility] [address] [place] [address] Dr. Scott Mukherjee Sodium [Moles/Vol] 138 mmol/L Normal 136-145 [facility] Comment on above: Performed By: #### T 7, LIPID, TSH, CMP #### [facility] [address] [place] [address] Dr. Scott Mukherjee Urea nitrogen [Mass/Vol] 11.0 mg/dL Normal 7.0-18.0 [facility] Comment on above: Performed By: #### T 7, LIPID, TSH, CMP #### [facility] [address] [address] [address] Scott Mukherjee Urea nitrogen/Creatinine [Mass ratio] 16.2 mg/mg Normal [facility] Comment on above: Performed By: #### T 7, LIPID, TSH, CMP #### [facility] [address] [address] [address] Scott Mukherjee TSHon 09-10-2021 TSH 1.858 uIU/mL Normal 0.358-3.740 [facility] Comment on above: Performed By: #### T 7, LIPID, TSH, CMP #### [facility] [address] [address] [address] Scott Mukherjee TSH RANGE SEE BELOW Normal [facility] Comment on above: Result Comment: <0.3 4 UIU/ml HYPERTHYROID 0.34-5.60 UIU/ml EUTHYROID >5.60 UIU/ml HYPOTHYROID Performed By: #### T 7, LIPID, TSH, CMP #### [facility] [address] [address] [address] Scott Mukherjee MG MAMM SCREEN PABLITO W CADon 0 09-07-2021 MG MAMM SCREEN PABLITO W CAD Patient: DAWNA ZIMMERMAN Exam Date: 09/07/2021 : 1955 Gender:F Ordering : DR MANDEI PIERCE . Admission #: [id number] Family : Order #: [id number] CLICK HERE TO VIEW EXAM RADIOLOGY REPORT [...] breast cancer at age 73. LOCATION: [facility] BREAST COMPOSITION: Heterogeneously dense,which may [...] Ge MD on 09/07/2021 at 10:56 Normal [facility] Pap IG, rfx Aptima HPV, rfx 16/18,45on 01-22-2021 . . Normal [facility] Comment on above: Result Comment: Perf ormed at: WB Performed By: #### P APHR2A #### [facility] [address] [place] [address] Dr. Scott Mukherjee DIAGNOSIS: Comment [facility] Comment on above: Result Comment: NEGA TIVE FOR INTRAEPITHELIAL LESION OR MALIGNANCY. CELLULAR CHANGES ASSOCIATED WITH ATROPHY ARE PRESENT. Performed at: WB Performed By: #### P APHR2A #### [facility] [address] [place] [address] Dr. Scott Mukherjee HPV Aptima Negative Normal Negative [facility] Comment on above: Result Comment: This nucleic acid amplification test detects fourteen high-risk HPV types (16,18,31,33,35,39,45,51,52,56,58,59,66,68) without differentiation. Performed at: =G Performed By: #### P APHR2A #### [facility] [address] [place] [address] Dr. Scott Mukherjee Methodology: Comment Normal [facility] Comment on above: Result Comment: This liquid based ThinPrep(R) pap test was screened with the use of an image guided system. Performed at: WB Performed By: #### P APHR2A #### [facility] [address] [place] [address] Dr. Scott Mukherjee Note: Comment Normal [facility] Comment on above: Result Comment: The [...] WB Performed By: #### P APHR2A #### [facility] [address] [address] [address] Scott Mukherjee Performed by: Comment Normal [facility] Comment on above: Result Comment: Gale García, Global Compensation Director (ASCP) Performed at: WB Performed By: #### P APHR2A #### [facility] [address] [address] [address] Scott Mukherjee Specimen adequacy: Comment Normal [facility] Comment on above: Result Comment: Sati sfactory for evaluation. Endocervical component may not be distinguished in cases of atrophy. Performed at: WB Performed By: #### P APHR2A #### [facility] [address] [place] [address] Dr. Scott Mukherjee Vital Signs Date Time Vital Sign Value Performing Clinician Faci lity 11-05-2024 13:26-0400 Body height 157.5 cm Gale BASURTO Work Phone: [facility] 11-05-2024 13:26-0400 Body mass index (BMI) [Ratio] 31.09 kg/m2 Gale BASURTO Work Phone: [facility] 11-05-2024 13:26-0400 Body weight 77.11 kg Gale BASURTO Work Phone: [facility] 11-05-2024 13:26-0400 Diastolic blood pressure 80 mm[Hg] Gale BASURTO Work Phone: [facility] 11-05-2024 13:26-0400 Systolic blood pressure 132 mm[Hg] Gale BASURTO Work Phone: [facility] Healthcare Encounters Encounter Date Encounter Type Care Provider Facility Start: 12-10-2024 End: 12-10-2024 Bamboo flowsheet Gale BASURTO Work Phone: [facility] Start: 12-10-2024 End: 12-10-2024 Bamboo flowsheet Gale BASURTO Work Phone: [facility] Start: 12-10-2024 End: 12-10-2024 ambulatory GALE FORREST Not Available Start: 12-10-2024 End: 12-10-2024 Patient encounter procedure Gale BASURTO Work Phone: [facility] Comment on above: Vaginal itching (Grecia sofie Dx) Start: 11-05-2024 End: 11-05-2024 Bamboo flowsheet Gale BASURTO Work Phone: [facility] Start: 11-05-2024 End: 11-08-2024 Bamboo flowsheet Gale BASURTO Work Phone: [facility] Start: 11-05-2024 End: 11-08-2024 Clinisync Result Encounter Gale BASURTO Work Phone: [facility] Unsolicited Start: 11-05-2024 End: 11-05-2024 Patient encounter procedure Gale BASURTO Work Phone: [facility] Work Phone: Start: 11-05-2024 End: 11-05-2024 Periodic preventive med est patient 65yrs& older Gale BASURTO Work Phone: [facility] Comment on above: Well woman exam with routine gynecological exam; Vaginal itching; Hot flashes due to menopause Start: 11-05-2024 End: 11-05-2024 ambulatory GALE FORREST Not Available Start: 09-10-2021 End: 09-11-[address] MANDIE PIERCE Facility:[facility] Start: 09-07-2021 End: 09-08-[address] MANDIE PIERCE Facility:[facility] Start: 01-28-2021 Encounter for gynecological examination (general) (routine) without abnormal findings FRANCIS CALVILLO [facility] Start: 01-19-2021 End: 01-19-2021 ambulatory FRANCIS CALVILLO Facility:[facility] Start: 01-19-2021 End: 01-19-2021 Encounter for gynecological examination (general) (routine) without abnormal findings FRANCIS CALVILLO Facility:[facility] Procedures Date Procedure Procedure Detail Performing Clinician Start: 11-05-2024 IGP,APTIMA HPV,AGE GDLN Gale BASURTO Work Phone: Plan of Treatment Date Care Activity Detail Author Start: 04-09-2026 Pneumococcal Vaccine : 65+ Years (3 of 3 - PCV20 or PCV21) Pneumococcal Vaccine: 65+ Years (3 of 3 - PCV20 or PCV21) [facility] Start: 12-24-2024 Influenza vaccination Influenza Vacc ine (#1) [facility] Start: 12-10-2024 End: 12-10-2024 Patient encounter procedure 12/10/2024 10:30 AM EDT Office Visit [facility] [address] [place] [address] Gale Forrest PA [address] [place], [id number] Start: 11-05-2024 End: 11-05-2024 Patient encounter procedure 11/05/2024 1:00 PM EDT Office Visit [facility] [address] [place] [address] Gale Forrest PA [address] [place], [id number] Arrived [facility] Comment on above: Arrived Start: 1996 Screening for malign ant neoplasm of breast Mammogram [facility] Start: 1956 Screening for malign ant neoplasm of colon [facility] THIN PREP TIS PAP AN D HR HPV DNA THIN PREP TIS PAP AND HR HPV DNA Pathology and Cytology Routine Well woman exam with routine gynecological exam Ordered: 11/05/2024 [facility] Work Phone: Comment on above: Ordered: 11/05/2024 Immunizations Immunization Date Immunization Notes Care Provider Fa cility 02-26-2024 influenza virus vacc ine, unspecified formulation Gale BASURTO Work Phone: [facility] Payers Date Payer Category Payer Blue [facility] [address] [employer] [id number] 2021 Medicare MEDICARE [id number] 1959 Medicare [id number] 1959 Unknown [id number] 1959 Unknown [id number] 1956 Unknown [id number] 1956 Unknown [id number] 1956 Unknown [id number] 1956 Unknown [id number] 1956 Unknown [id number] Social History Date Type Detail Facility [facility] Start: 1955 Sex assigned at Not on file [facility] Gender identity [facility] History of Present illness Narrative 12-10-2024 SB Benitez - 12/10/2024 10:30 AM EDT Note Date & Type Note Facility 12-10-2024 History of Presen t illness Narrative Reason for Appointment: Patient ID: Radha Zimmerman is a 69 y.o. female who presents for No chief complaint on file. Patient presents today via telephone call for a telehealth appointment. Patients Phone #: [phone] (mobile) Date: 12/10/2024 Time: 11:44 AM of the visit Platform Used: Audio call performed via in house telephone system. Location of Patient and Provider: Patient at home, provider at clinic Consent for Telehealth: Patient provided verbal consent to conduct the visit virtually via audio only phone call Current Medications: has a current medication list which includes the following prescription(s): calcium carbonate, cholecalciferol, clotrimazole, diphenhydramine, estradiol, ferrous fumarate, meloxicam, omega 3-6-9 fatty acids, omeprazole, simvastatin, and sulfasalazine. Medical History: Active Ambulatory Problems Diagnosis Date Noted No Active Ambulatory Problems Resolved Ambulatory Problems Diagnosis Date Noted No Resolved Ambulatory Problems Past Medical History: Diagnosis Date Arthritis High cholesterol Family History Problem Relation Name Age of Onset Breast cancer Mother 65 estrogen receptive Social History Tobacco Use Smoking status: Not on file Smokeless tobacco: Not on file Substance Use Topics Alcohol use: Not on file Drug use: Not on file Past Surgical History: Procedure Laterality Date ANKLE SURGERY SECTION, LOW TRANSVERSE SECTION, LOW TRANSVERSE SECTION, LOW TRANSVERSE Allergies Allergen Reactions Bactrim [Sulfamethoxazole-Trimethoprim] Vitals: Estimated body mass index is 31.09 kg/m as calculated from the following: Height as of 11/05/24: 5' 2 . Weight as of 11/05/24: 170 lb. BP: No LMP recorded. Patient is postmenopausal. Assessment/Plan No diagnosis found. Today's telehealth visit consisted of spending 5-10 minutes talking to patient on the phone. Patient states some improvement but still having some itching. We will send in clotrimazole to see if helps improve remainder of itching Documented by SB Benitez on behalf of: SB Benitez documented in this encounter [facility] History of Present illness Narrative 11-05-2024 BS Benitez - 11/05/2024 1:00 PM EDT Note Date & Type Note Facility 11-05-2024 History of Presen t illness Narrative Reason for Appointment: Patient ID: Dawna Zimmerman is a 69 y.o. female who presents [...] nursing note reviewed. Exam conducted with a cinnamon grinder present. Vitals: Estimated body mass index is [...] of: SB Benitez documented in this encounter [facility] Evaluation note Note Date & Type Note Facility Evaluation note Diagnosis Well woman exam with routine gynecological exam Routine gynecological examination Vaginal itching Pruritus of genital organs Hot flashes due to menopause documented in this encounter [facility] Evaluation note Note Date & Type Note Facility Evaluation note Diagnosis Vaginal itching- Primary Pruritus of genital organs documented in this encounter [facility] Summary Purpose Family History No Family History Records FoundNo Family History Records Found Advance Directives No Advanced Directives Records FoundNo Advanced Directives Records Found Additional Source Comments INFORMATION SOURCE (unrecogn ized section and content) DATE CREATED AUTHOR 09/17/2021 [facility] DATE CREATED AUTHOR AUTHOR'S ORGANIZ ATION 12/11/2024 [facility] Reason for Visit (unrecogniz ed section and [...] BE BASED ON THE PRIMARY CLINICAL RECORDS. [facility] [employer] provides no warranty or guarantee of the accuracy or completeness of information in this document.
== END 2025-02-11 08:06 | disposition home or self-care (01) ==
LOC: RAD 08:05
PROVIDERS: PCP Family Medicine; Visit Provider Orthopaedic Surgery Orthopaedic Trauma
DX: R22.31 Localized swelling, mass and lump, right upper limb (principal)
CPT/HCPCS: 73110